=== PATIENT | female | born 1945 | race Caucasian/White ===

== ENCOUNTER → 2017-11-08 09:08 | Outpatient (CLI) | payer MEDICARE, OTHER, SELFPAY ==
[2017-11-08 11:12] LABS: Hep C Virus Ab w/Reflex Quant NEGATIVE s/c (NEGATIVE)
== END ==
PROVIDERS: PCP Family Medicine; Visit Provider Family Medicine
DX: Z77.21 Contact with and (suspected) exposure to potentially hazardous body fluids (principal)
CPT/HCPCS: 36415; 86803

== ENCOUNTER → 2018-01-14 14:04 | Outpatient (CLI) | payer MEDICARE, OTHER, SELFPAY ==
--- NOTE | 2018-01-14 | DI.US.S_ITS ---
PROCEDURE: US THYROID INDICATIONS: NONTOXIC GOITER TECHNIQUE: Real-time scanning was performed of the thyroid gland, with image documentation. COMPARISON: [facility] Ultrasound, US, US THYROID, 02/09/2017, 13:58. [facility], US, THYROID, 03/28/2015, 13:05. [facility], US, THYROID, 11/03/2007, 8:29. FINDINGS: Right: Thyroid lobe measures 4.8 x 2.0 x 2.1 cm. There is a predominantly solid, hypoechoic nodule in the inferior pole. Left: Thyroid lobe measures 2.4 x 1.4 x 1.5 cm, and is homogenous in echotexture. There is a spongiform nodule in the superior pole. Isthmus: 3 mm thick. Nodule number: 1 Location: Inferior pole of the right thyroid lobe Size: 1.6 x 1.4 x 2.3 cm (previously 1.7 x 1.1 x 2.4 cm on 02/09/2017). Composition: Predominantly solid Echogenicity: Isoechoic Shape: wider than tall. Margins: Smooth Echogenic foci: Not present Total points: 3 ACR TI-RADS category: 3 Nodule number: 2 Location: Superior pole of the left thyroid lobe Size: 0.9 x 10.9 x .7 cm (previously 1.1 x 1.0 x 1.8 cm). Composition: The spongiform Echogenicity: Mixed Shape: wider than tall. Margins: Smooth Echogenic foci: Not present Total points: 1 ACR TI-RADS category: 2 IMPRESSION: Stable bilateral thyroid nodules. ACR TI-RADS definitions and recommendations: TI-RADS 1 (benign): 0 points. FNA not needed. TI-RADS 2 (not suspicious): 2 points. FNA not needed. TI-RADS 3 (mildly suspicious): 3 points. * FNA if 2.5 cm or larger, follow up if 1.5 cm or larger (at 1, 3, and 5 years). TI-RADS 4 (moderately suspicious): 4-6 points. * FNA if 1.5 cm or larger, follow up if 1 cm or larger (at 1, 2, 3, and 5 years). TI-RADS 5 (highly suspicious): 7 points or more. * FNA if 1 cm or larger, follow up if 0.5 cm or larger (every year for 5 years). Dictated by: Ambrocio Godfrey M.D. on 01/14/2018 at 16:37 Approved by: Ambrocio Godfrey M.D. on 01/14/2018 at 16:48
== END ==
PROVIDERS: PCP Family Medicine; Visit Provider Internal Medicine Endocrinology, Diabetes & Metabolism
DX: E04.2 Nontoxic multinodular goiter (principal)
CPT/HCPCS: 76536

== ENCOUNTER → 2018-02-16 12:05 | Outpatient (CLI) | payer MEDICARE, OTHER, SELFPAY ==
--- NOTE | 2018-02-16 | DI.MG.S_ITS ---
BILATERAL DIGITAL SCREENING MAMMOGRAM 3D/2D WITH CAD: 02/16/2018 CLINICAL: Routine screening. Comparison is made to exams dated: 02/15/2017 mammogram, 02/14/2016 mammogram, and 02/08/2015 mammogram - [facility]. The tissue of both breasts is heterogeneously dense. This may lower the sensitivity of mammography. Current study was also evaluated with a Computer Aided Detection (CAD) system. No significant masses, calcifications, or other findings are seen in either breast. There has been no significant interval change. IMPRESSION: NEGATIVE There is no mammographic evidence of malignancy. A 1 year screening mammogram is recommended. This exam was interpreted at Station ID: [id number]. NOTE: For mammograms, a report in lay terms will be sent to the patient. Approximately 15% of breast malignancies will not be visualized mammographically. In the management of a palpable breast mass, a negative mammogram must not discourage biopsy of a clinically suspicious lesion. Electronically Signed By: Reilly roca/gildardo:02/16/2018 15:56:13 copy to: Joanne Lorenzo letter sent: Normal Exam ACR BI-RADS Category 1: Negative 3341F
== END ==
PROVIDERS: PCP Family Medicine; Visit Provider Family Medicine
DX: Z12.31 Encounter for screening mammogram for malignant neoplasm of breast (principal)
CPT/HCPCS: 77063; 77067

== ENCOUNTER → 2018-04-18 08:22 | Outpatient (CLI) | payer MEDICARE, OTHER, SELFPAY ==
[2018-04-18 10:39] LABS: Calcium 9.8 mg/dL (8.4-10.2)
[2018-04-18 11:16] LABS: Vitamin D 25 Hydroxy (D3) 42.2 ng/mL (30.0-100.0)
[2018-04-25 17:27] LABS: Parathyroid Hormone Int 37 pg/mL (14-64)
[2018-04-27 19:02] LABS: N-Telopeptide Serum 12.3 nM BCE (6.2-19.0)
== END ==
PROVIDERS: Family Provider Family Medicine; PCP Family Medicine; Visit Provider Internal Medicine Endocrinology, Diabetes & Metabolism
DX: M81.0 Age-related osteoporosis without current pathological fracture (principal)
CPT/HCPCS: 36415; 82306; 82310; 82523; 83970

== ENCOUNTER → 2018-09-01 07:39 | Outpatient (CLI) | payer MEDICARE, SELFPAY ==
[2018-09-01 08:18] LABS: Add Manual Diff / Slide Review NO; Basophils Absolute Auto 0 /uL (0-100); Basophils Percent Auto 0.7 % (0-2); Eosinophils Absolute Auto 100 /uL (0-450); Eosinophils Percent Auto 1.7 % (2-4); Hemoglobin 14.1 g/dL (12.0-16.0); Lymphocytes Absolute Auto 2300 /uL (1100-4500); Lymphocytes Percent Auto 41.7 % (25-40); Mean Corpuscular HGB Conc 34.4 % (30-36); Mean Corpuscular Hemoglobin 31.8 PG (26-34); Mean Corpuscular Volume 92.6 fL (80-100); Monocytes Absolute Auto 500 /uL (0-900); Monocytes Percent Auto 8.2 % (3-14); Neutrophils Absolute Auto 2600 /uL (1500-7000); Neutrophils Percent Auto 47.7 % (50-75); Platelet Count 261 X10^3/uL (150-400); Red Blood Cell Count 4.43 X10^6/uL (4.0-5.2); Red Cell Distribution Width 13.6 % (11.6-14.8); White Blood Cell Count 5.5 X10^3/uL (4.5-11.0)
[2018-09-01 08:33] LABS: Alanine Aminotransferase 27 IU/L (9-52); Albumin 4.2 g/dL (3.5-5.0); Albumin Globulin Ratio 1.4 (1.0-2.8); Alkaline Phosphatase 84 U/L (38-126); Aspartate Aminotransferase 31 IU/L (14-36); BUN Creatinine Ratio 28.6 (6-22); Bilirubin Total 0.7 mg/dL (0.2-1.3); Blood Urea Nitrogen 20 mg/dL (7-17); Calcium 9.8 mg/dL (8.4-10.2); Carbon Dioxide 28 mmol/L (22-32); Chloride 102 mmol/L (98-107); Cholesterol 205 mg/dL (140-199); Estimated Glomerular Filt Rate > 60.0 mL/min (>60); Globulin 2.9 g/dL (1.7-4.1); Glucose 80 mg/dL (80-110); HDL Cholesterol 81 mg/dL (40-60); HEMOLYSIS < 15 (0-50); LDL Cholesterol Calculated 112 mg/dL (<100); Potassium 4.2 mmol/L (3.4-5.1); Sodium 138 mmol/L (137-145); Total Protein 7.1 g/dL (6.3-8.2); Triglycerides 60 mg/dL (35-150)
[2018-09-01 08:59] LABS: Free T3, Triiodothyronine Free 3.04 pg/mL (2.77-5.27); Free T4, Direct Thyroxine 1.15 ng/dL (0.78-2.19)
[2018-09-01 09:12] LABS: Thyroid Stimulating Hormone 0.94 uIU/mL (0.47-4.68)
== END ==
PROVIDERS: PCP Family Medicine; Visit Provider Family Medicine
DX: E03.9 Hypothyroidism, unspecified (principal); I10 Essential (primary) hypertension; Z51.81 Encounter for therapeutic drug level monitoring
CPT/HCPCS: 36415; 80053; 80061; 84439; 84443; 84481; 85025

== ENCOUNTER → 2019-01-19 09:22 | Outpatient (CLI) | payer MEDICARE, SELFPAY ==
[2019-01-19 11:01] LABS: Thyroid Stimulating Hormone 1.18 uIU/mL (0.47-4.68)
== END ==
PROVIDERS: Family Provider Family Medicine; PCP Family Medicine; Visit Provider Internal Medicine Endocrinology, Diabetes & Metabolism
DX: E04.2 Nontoxic multinodular goiter (principal); E04.1 Nontoxic single thyroid nodule
CPT/HCPCS: 36415; 84443

== ENCOUNTER → 2019-02-22 15:54 | Outpatient (CLI) | payer MEDICARE, SELFPAY ==
--- NOTE | 2019-02-22 | DI.MG.S_ITS ---
BILATERAL DIGITAL SCREENING MAMMOGRAM 3D/2D WITH CAD: 02/22/2019 CLINICAL: Routine screening. Comparison is made to exams dated: 02/16/2018 mammogram, 02/15/2017 mammogram, 02/14/2016 mammogram, and 02/08/2015 mammogram - [facility]. There are scattered fibroglandular elements in both breasts. Current study was also evaluated with a Computer Aided Detection (CAD) system. No significant masses, calcifications, or other findings are seen in either breast. There has been no significant interval change. IMPRESSION: NEGATIVE There is no mammographic evidence of malignancy. A 1 year screening mammogram is recommended. This exam was interpreted at Station ID: [id number]. NOTE: For mammograms, a report in lay terms will be sent to the patient. Approximately 15% of breast malignancies will not be visualized mammographically. In the management of a palpable breast mass, a negative mammogram must not discourage biopsy of a clinically suspicious lesion. Electronically Signed By: Lucila lu/gildardo:02/24/2019 11:57:10 copy to: Joanne Lorenzo letter sent: Normal Exam ACR BI-RADS Category 1: Negative 3341F
== END ==
PROVIDERS: PCP Family Medicine; Visit Provider Family Medicine
DX: Z12.31 Encounter for screening mammogram for malignant neoplasm of breast (principal)
CPT/HCPCS: 77063; 77067

== ENCOUNTER → 2019-09-07 07:45 | Outpatient (CLI) | payer MEDICARE, SELFPAY ==
[2019-09-07 09:01] LABS: Add Manual Diff / Slide Review NO; Basophils Absolute Auto 0 /uL (0-100); Eosinophils Absolute Auto 100 /uL (0-450); Eosinophils Percent Auto 1.9 % (2-4); Hematocrit 39.3 % (36-46); Hemoglobin 13.5 g/dL (12.0-16.0); Lymphocytes Absolute Auto 2000 /uL (1100-4500); Lymphocytes Percent Auto 40.1 % (25-40); Mean Corpuscular HGB Conc 34.4 % (30-36); Mean Corpuscular Hemoglobin 32.4 PG (26-34); Mean Corpuscular Volume 94.1 fL (80-100); Monocytes Absolute Auto 400 /uL (0-900); Monocytes Percent Auto 7.8 % (3-14); Neutrophils Absolute Auto 2400 /uL (1500-7000); Neutrophils Percent Auto 49.2 % (50-75); Platelet Count 251 X10^3/uL (150-400); Red Blood Cell Count 4.18 X10^6/uL (4.0-5.2); White Blood Cell Count 4.9 X10^3/uL (4.5-11.0)
[2019-09-07 09:16] LABS: Aspartate Aminotransferase 21 IU/L (14-36); Blood Urea Nitrogen 23 mg/dL (7-17); Calcium 9.7 mg/dL (8.4-10.2); Carbon Dioxide 28 mmol/L (22-32); Chloride 105 mmol/L (98-107); Cholesterol 182 mg/dL (140-199); Estimated Glomerular Filt Rate > 60.0 mL/min (>60); Glucose 87 mg/dL (80-110); HDL Cholesterol 63 mg/dL (40-60); HEMOLYSIS < 15 (0-50); LDL Cholesterol Calculated 103 mg/dL (<100); Potassium 4.3 mmol/L (3.4-5.1); Sodium 139 mmol/L (137-145); Triglycerides 79 mg/dL (35-150)
== END ==
PROVIDERS: PCP Family Medicine; Referring Provider Internal Medicine; Visit Provider Internal Medicine
DX: I10 Essential (primary) hypertension (principal); E78.2 Mixed hyperlipidemia; I48.91 Unspecified atrial fibrillation; E03.9 Hypothyroidism, unspecified
CPT/HCPCS: 36415; 80048; 80061; 84443; 84450; 85025

== ENCOUNTER → 2019-11-10 10:24 | Outpatient (CLI) | payer MEDICARE, SELFPAY ==
--- NOTE | 2019-11-10 | DI.US.S_ITS ---
PROCEDURE: US THYROID INDICATIONS: NONTOXIC MULTINODULAR GOITER TECHNIQUE: Real-time scanning was performed of the thyroid gland, with image documentation. COMPARISON: [facility], US, US THYROID, 01/14/2018, 14:50. FINDINGS: Right: Thyroid lobe measures 4.3 x 1.9 x 1.9 cm, and is homogeneous in echotexture. Left: Thyroid lobe measures 3.4 x 1.5 x 1.4 cm, and is homogenous in echotexture. Isthmus: 4.0 mm thick. Nodule number: 1 Location: Right inferior Size: Unchanged 2.3 x 1.6 x 1.5 cm. Composition: Predominantly solid Echogenicity: Hypoechoic Shape: wider than tall. Margins: Smooth Echogenic foci: None Total points: 4 ACR TI-RADS category: Moderately suspicious Nodule number: 2 Location: Left superior Size: Unchanged at 1.7 x 1.1 x 1.1 Composition: Predominantly solid Echogenicity: Heterogeneous Shape: wider than tall. Margins: Smooth Echogenic foci: None Total points: 3 ACR TI-RADS category: Mildly suspicious IMPRESSION: Stable appearance of bilateral thyroid nodules. Recommend continued followup ultrasound as detailed below. ACR TI-RADS definitions and recommendations: TI-RADS 1 (benign): 0 points. FNA not needed. TI-RADS 2 (not suspicious): 2 points. FNA not needed. TI-RADS 3 (mildly suspicious): 3 points. * FNA if 2.5 cm or larger, follow up if 1.5 cm or larger (at 1, 3, and 5 years). TI-RADS 4 (moderately suspicious): 4-6 points. * FNA if 1.5 cm or larger, follow up if 1 cm or larger (at 1, 2, 3, and 5 years). TI-RADS 5 (highly suspicious): 7 points or more. * FNA if 1 cm or larger, follow up if 0.5 cm or larger (every year for 5 years). Dictated by: Brian MERCHANT Interpreted: Yuki Rosas MD on 11/10/2019 at 13:05 Approved by: Yuki Rosas M.D. on 11/10/2019 at 15:05
[2019-11-10 11:59] LABS: Free T4, Direct Thyroxine 1.14 ng/dL (0.78-2.19)
[2019-11-10 12:13] LABS: Thyroid Stimulating Hormone 0.552 uIU/mL (0.47-4.68)
== END ==
PROVIDERS: PCP Internal Medicine; Referring Provider Internal Medicine Endocrinology, Diabetes & Metabolism; Visit Provider Internal Medicine Endocrinology, Diabetes & Metabolism
DX: E04.2 Nontoxic multinodular goiter (principal); E03.9 Hypothyroidism, unspecified; R49.0 Dysphonia
CPT/HCPCS: 36415; 76536; 84439; 84443

== ENCOUNTER → 2019-11-14 17:55 | Outpatient (CLI) | payer MEDICARE, SELFPAY ==
[2019-11-14 19:58] LABS: COVID19 -Nasal RAPID Negative (Negative)
== END ==
PROVIDERS: PCP Internal Medicine; Visit Provider Physician Assistant
DX: Z01.812 Encounter for preprocedural laboratory examination (principal)
CPT/HCPCS: 87635

== ENCOUNTER 2019-11-15 07:20 | Day surgery (SDC) | payer MEDICARE, SELFPAY ==
[2019-11-15] VITALS (7 sets, daily range): BP systolic 137–151; BP diastolic 66–78; PULSE 56–64; RESP 12–19; TEMP 36.2–36.4; O2SAT 98–100; BMI 25.1
--- NOTE | 2019-11-15 | PATH_ITS ---
[facility] Accession Number: [id number] . 01 Material submitted: . PART A: cecum - CECAL POLYP PART B: colon - ASCENDING COLON POLYPS . 01 Clinical history: . B: ASCENDING COLON POLYPS X2 . 02 Diagnosis: A. Cecum, Polyp, Biopsy: Tubular adenoma. . B. Ascending Colon, Polyps x2, Biopsies: Sessile serrated adenomas. V 11/17/2019 1018 Local . 02 Electronically signed: . Bianka Gates MD, Pathologist NPI- [id number] . 01 Gross description: . Part A: CECAL POLYP: Received in formalin is 1 fragment(s) of kwon, soft tissue measuring 0.9 x 0.5 x 0.1 cm submitted entirely in 1 cassette(s) Part B: ASCENDING COLON POLYPS: Received in formalin are multiple fragment(s) of kwon, soft tissue measuring 1.0 x 1.0 x 0.4 cm in aggregate submitted entirely in 1 cassette(s) /QBJ 11/16/2019 0816 Local . 02 Pathologist provided ICD-10: D12.0, D12.2 . 02 CPT . 006022, 693709 Performed at: 01 [facility] [address], [place], [place] [id number] MD Reilly Cole MD Phone: [phone] Performed at: 02 [facility] [address] [place], [place] [id number] MD Bianka Gates MD Phone: [phone]
[2019-11-15] MEDS: SODIUM CHLORIDE 0.9% 1,000 ML 70 ML IV (07:59)
--- NOTE | 2019-11-15 08:03 | PM.HP.1 ---
History of Present Illness History of Present Illness Date Patient Seen: 11/15/19 Chief complaint: COLONOSCOPY Narrative: 74-year-old female seen by Dr. Quiroz on 10/12/2019 for constipation and fecal incontinence who is here for colonoscopy. She has a history of colon polyps in the past. She is currently taking Eliquis which she has held for this procedure. Patient History Medical History (Updated 03/22/19 @ 08:34 by Joanne Lorenzo MD) Anemia (Resolved 194) Anemia (Resolved 1948) Blood clot in vein (Chronic) Cataracts, bilateral (Resolved) Cataracts, both eyes (Resolved ~2012) Cervical spine disease (Chronic 2013) Chicken pox (Resolved ~1951) Chickenpox (Resolved ~1951) Chlamydia (Resolved Unknown) Chlamydia (Resolved) Chronic back pain (Chronic 2013) Colon polyps (Chronic ~2011) Fecal incontinence (Chronic ~2010) Foot pain (Chronic) Frequent UTI (Chronic) Generalized headaches (Chronic) Hemorrhoids (Chronic ~07/2014) History of blood clots (Resolved Unknown) History of irregular menstrual cycles (Resolved Unknown) Hypertension (Chronic 1995) Hypothyroidism (Chronic 1994) Infertility (Resolved) Irregular periods/menstrual cycles (Resolved) Lumbar spine pain (Chronic) Measles (Resolved ~1951) Measles (Resolved ~1951) Mumps (Resolved Unknown) Mumps (Resolved) Osteoarthritis (Chronic) Osteopenia (Chronic) Peripheral neuropathy (Chronic 2009) Shoulder pain (Chronic) Sleep apnea (Chronic 1999) Spinal stenosis (Chronic) Thyroid nodule (Chronic 1994) Urinary incontinence (Chronic) Surgical History Anesthesia (Resolved) History of left cataract surgery (Resolved 2012) History of nasal septoplasty (Resolved 1983) History of right cataract surgery (Resolved 2013) History of tonsillectomy (Resolved 1951) Status post appendectomy (Resolved 2008) Status post dilation and curettage (Resolved 1978) Family & Social History Family History (Updated 01/19/18 @ 10:15 by Mohini Sky) Mother High cholesterol Congestive heart failure Heart disease Mental health problem Father Lung cancer Grandmother No problems noted. Sister Anxiety Sister Anxiety Grandmother Heart disease Grandfather Heart disease Social History: household members spouse Tobacco & Substance use: Smoking Status Never smoker alcohol intake frequency holiday/special occasion Substance Use Type does not use Meds Home Medications and Allergies Home Medications Medication Instructions Recorded Confirmed Type cyanocobalamin (vitamin B-12) 500 mcg PO QDAY #0 02/19/16 11/15/19 History [Vitamin B-12] Eliquis 2.5 mg BID #0 09/07/16 11/15/19 History metoprolol succinate [Toprol XL] 12.5 mg PO QDAY #45 tab 03/08/17 11/15/19 Rx letanoprost EYE-BOTH 10/26/17 03/22/19 History calcium carbonate 500 mg calcium 500 mg PO BID tab 01/19/18 11/15/19 History (1,250 mg) tablet omega-3 fatty acids 1,000 mg 1,000 mg PO DAILY 01/19/18 11/15/19 History capsule levothyroxine 137 mcg tablet 137 mcg PO QDAY #90 tab 10/10/18 03/22/19 Rx liothyronine 5 mcg tablet 5 mcg PO QAM #90 tab 10/10/18 11/15/19 Rx CMP Estriol Vaginal Pearls See Rx Instructions VAG .COMPLEX 03/10/19 03/22/19 Rx #30 day amlodipine 5 mg tablet 5 mg PO QDAY #90 tab 09/01/19 11/15/19 Rx nitrofurantoin See Rx Instructions .ROUTE 10/09/19 Rx monohydrate/macrocrystals 100 mg .COMPLEX #30 cap capsule Allergies Allergy/AdvReac Type Severity Reaction Status Date / Time duloxetine Allergy Mild Verified 11/15/19 07:37 codeine Allergy Unknown Verified 11/15/19 07:34 Exam Vital Signs (past 8 hours): - 11/15/19 07:52 Temperature 97.5 F L Pulse Rate 56 L Respiratory Rate 16 Blood Pressure 151/78 H Pulse Oximetry 98 Oxygen Delivery Method Room Air Narrative Exam Narrative: General: Patient is well developed, not in apparent distress Cardiovascular: Regular rate and rhythm, no murmurs, rubs, or gallops; no evidence of edema; no palpable abdominal aortic aneurysm Gastrointestinal: Normoactive bowel sounds, soft, nontender, nondistended, no rebound tenderness, no hepatosplenomegaly, no evidence of hernia Assessment & Plan Assessment & Plan narrative: 74-year-old female currently on Eliquis with here for surveillance colonoscopy. She has incidental constipation and fecal incontinence Regarding the procedure(s), the risks and potential complications, benefits, and alternatives (including not doing the procedure) were discussed with the patient. The risks include but are not limited to bleeding, splenic injury, infection, perforation which may require surgical intervention, missed lesions, and adverse reactions to sedative medicines. After a question and answer period, the patient agreed to proceed with the procedure(s) and gives informed consent.
--- NOTE | 2019-11-15 08:16 | PM.OP.ENDO ---
Operative Date/Time/Diagnoses Date of procedure: 11/15/19 Procedure Notes Procedure in detail: Surgeon: Luis Bruno MD Procedure: Colonoscopy with polypectomy Preoperative diagnosis: Colon polyp surveillance Postoperative diagnosis: Colon polyps status post polypectomy; 1 via piecemeal polypectomy; grade 1 internal hemorrhoids Medications: Conscious sedation using 4 mg IV of Midazolam and 100 mcg IV of Fentanyl Preanesthesia Assessment An H and P was performed/updated and the Px?s ASA class is 2. The procedure was discussed in detail with the patient. The potential risks and complications including infection, bleeding, missed lesions, perforation, need for surgery in case of perforation, prolonged hospital stay, and were explained. A brief question and answer period was allotted and once all questions were answered, informed consent was obtained. The patient was brought back to the procedure room and placed on standard monitoring. The patient?s vital signs were monitored continuously throughout the entire procedure. Prior to starting, a timeout was performed to confirm the patient?s identity, allergies, medications, and procedure. Procedure in detail The patient was placed in left lateral decubitus position and once adequate sedation was obtained a REJI was performed. The digital rectal examination did not reveal any palpable lesions. The tip of the colonoscope was placed in the anal canal and advanced without difficulty all the way to the cecum which was identified by the appendiceal orifice and the ileocecal valve. Careful examination of all rudolph of the colon was performed with irrigation of any residual stool. A 5 mm sessile polyp was found in the cecum. This was removed by means of cold snare. Resection and retrieval were complete with minimal bleeding A 5 mm sessile polyp was found in the ascending colon. This was removed by means of cold snare. Resection and retrieval were complete with minimal bleeding A 20 mm sessile polyp was found in the ascending colon just distal to the cecum. Saline lift was performed to define borders of the polyp. Dissection of will follow up was done in a piecemeal fashion using hot and cold snare. Resection appeared complete with minimal bleeding. Retroflexion was performed in the rectum which revealed grade 1 internal hemorrhoids The patient tolerated the procedure well and will be brought back to the recovery area to be discharged once criteria are met. The prep was judged to be good and adequate to identify polyps less than 5 mm. The withdrawal time was 27 minutes. The total physician intraservice time was 35 minutes. Complications There were no complications and estimated blood loss was minimal. Recommendations: Resume previous diet Resume Eliquis tomorrow due to the large polypectomy Continue outPx medications Follow up pathology results Repeat colonoscopy in 3 months to re-evaluate polypectomy site for any residual polyp given piecemeal removal Call our office ([facility]) to schedule follow-up with Dr Quiroz An emergency contact number was given to the patient for any complications related to the procedure
[2019-11-15] MEDS: MIDAZOLAM 5 MG/5 ML VIAL IV (08:22)
[2019-11-15] MEDS: fentaNYL 250 MCG/5 ML INJ IV (08:22)
== END 2019-11-15 09:42 | disposition home or self-care (01) ==
PROVIDERS: PCP Internal Medicine; Referring Provider Internal Medicine Gastroenterology; Visit Provider Internal Medicine Gastroenterology
PROC: 0DJD8ZZ Inspection of Lower Intestinal Tract, Via Natural or Artificial Opening Endoscopic (ICD-10-PCS; CPT 45378; principal; 2019-11-15 08:30)
DX: Z12.11 Encounter for screening for malignant neoplasm of colon (principal); Z86.010 Personal history of colon polyps; K64.0 First degree hemorrhoids; D12.2 Benign neoplasm of ascending colon; D12.0 Benign neoplasm of cecum; Z79.01 Long term (current) use of anticoagulants
CPT/HCPCS: 45385; J2250; J3010

== ENCOUNTER → 2020-02-19 13:16 | Outpatient (CLI) | payer MEDICARE, SELFPAY ==
[2020-02-19 15:01] LABS: Thyroid Stimulating Hormone 1.27 uIU/mL (0.47-4.68)
== END ==
PROVIDERS: PCP Internal Medicine; Referring Provider Internal Medicine Endocrinology, Diabetes & Metabolism; Visit Provider Internal Medicine Endocrinology, Diabetes & Metabolism
DX: E03.9 Hypothyroidism, unspecified (principal); E04.2 Nontoxic multinodular goiter
CPT/HCPCS: 36415; 84443

== ENCOUNTER → 2020-02-24 10:12 | Outpatient (CLI) | payer MEDICARE, SELFPAY ==
--- NOTE | 2020-02-24 | DI.MG.S_ITS ---
BILATERAL DIGITAL SCREENING MAMMOGRAM 3D/2D WITH CAD: 02/24/2020 CLINICAL: Routine screening. Comparison is made to exams dated: 02/22/2019 mammogram, 02/16/2018 mammogram, and 02/15/2017 mammogram - [facility]. There are scattered fibroglandular elements in both breasts. Current study was also evaluated with a Computer Aided Detection (CAD) system. No significant masses, calcifications, or other findings are seen in either breast. There has been no significant interval change. IMPRESSION: NEGATIVE There is no mammographic evidence of malignancy. A 1 year screening mammogram is recommended. This exam was interpreted at Station ID: [id number]. NOTE: For mammograms, a report in lay terms will be sent to the patient. Approximately 15% of breast malignancies will not be visualized mammographically. In the management of a palpable breast mass, a negative mammogram must not discourage biopsy of a clinically suspicious lesion. Electronically Signed By: Jamin Pickering acr/penrad:02/25/2020 15:31:46 copy to: Joanne Lorenzo letter sent: Normal Exam ACR BI-RADS Category 1: Negative 3341F
== END ==
PROVIDERS: PCP Internal Medicine; Referring Provider Internal Medicine; Visit Provider Internal Medicine
DX: Z12.31 Encounter for screening mammogram for malignant neoplasm of breast (principal)
CPT/HCPCS: 77063; 77067

== ENCOUNTER → 2020-04-22 10:09 | Outpatient (CLI) | payer MEDICARE, SELFPAY ==
[2020-04-22 11:40] LABS: COVID19 -Nasal RAPID Negative (Negative)
== END ==
PROVIDERS: PCP Internal Medicine; Visit Provider Physician Assistant
DX: Z01.812 Encounter for preprocedural laboratory examination (principal); Z20.822 Contact with and (suspected) exposure to COVID-19
CPT/HCPCS: 87635; C9803

== ENCOUNTER 2020-04-24 07:51 | Day surgery (SDC) | payer MEDICARE, SELFPAY ==
--- NOTE | 2020-04-24 | PATH_ITS ---
[facility] Accession Number: [id number] . 01 Material submitted: . colon - PRIOR POLYPECTOMY POLYP . 01 Clinical history: . DX COLONOSCOPY . 02 Diagnosis: Polyp, Prior Polypectomy Site, Biopsy: Sessile serrated adenoma in one of four fragments. MRV 04/26/2020 1258 Local . 02 Electronically signed: . Bianka Gates MD, Pathologist NPI- [id number] . 01 Gross description: . PRIOR POLYPECTOMY POLYP: Received in formalin are 3 fragment(s) of kwon, soft tissue measuring 0.2 x 0.2 x 0.2 cm to 0.5 x 0.3 x 0.2 cm submitted entirely in 1 cassette(s) /JOVANNY 04/25/2020 1848 Local . 02 Pathologist provided ICD-10: D12.2 . 02 CPT . 150168 Performed at: 01 [facility] [address] [facility], [place], [place] [id number] MD Reilly Cole MD Phone: [phone] Performed at: 02 [facility] [address] [place], [place] [id number] MD Bianka Gates MD Phone: [phone]
--- NOTE | 2020-04-24 08:06 | PM.HP.1 ---
History of Present Illness History of Present Illness Date Patient Seen: 04/24/20 Chief complaint: DX COLONOSCOPY Narrative: 75-year-old female status post colonoscopy with piecemeal polyp removal in October 2019 who is here for surveillance of polypectomy site Patient History Medical History (Updated 03/06/20 @ 10:51 by Joanne Lorenzo MD) Anemia (1949) Anemia (1948) Blood clot in vein Cataracts, bilateral Cataracts, both eyes (~2012) Cervical spine disease (2013) Chicken pox (~1951) Chickenpox (~1951) Chlamydia (Unknown) Chlamydia Chronic back pain (2013) Colon polyps (~2011) Fecal incontinence (~2010) Foot pain Frequent UTI Generalized headaches Hemorrhoids (~07/2014) History of blood clots (Unknown) History of irregular menstrual cycles (Unknown) Hypertension (1995) Hypothyroidism (1994) Infertility Irregular periods/menstrual cycles Lumbar spine pain Measles (~1951) Measles (~1951) Mumps (Unknown) Mumps Osteoarthritis Osteopenia Peripheral neuropathy (2009) Shoulder pain Sleep apnea (1999) Spinal stenosis Thyroid nodule (1994) Urinary incontinence Surgical History Anesthesia History of left cataract surgery (2012) History of nasal septoplasty (1983) History of right cataract surgery (2013) History of tonsillectomy (1951) Status post appendectomy (2008) Status post dilation and curettage (1978) Family & Social History Family History (Updated 01/19/18 @ 10:15 by Mohini Sky) Mother High cholesterol Congestive heart failure Heart disease Mental health problem Father Lung cancer Grandmother No problems noted. Sister Anxiety Sister Anxiety Grandmother Heart disease Grandfather Heart disease Social History: household members spouse Tobacco & Substance use: Smoking Status Never smoker alcohol intake frequency holiday/special occasion Substance Use Type does not use Meds Home Medications and Allergies Home Medications Medication Instructions Recorded Confirmed Type cyanocobalamin (vitamin B-12) 500 mcg PO QDAY #0 02/19/16 04/24/20 History [Vitamin B-12] Eliquis 2.5 mg BID #0 09/07/16 04/24/20 History metoprolol succinate [Toprol XL] 12.5 mg PO QDAY #45 tab 03/08/17 04/24/20 Rx calcium carbonate 500 mg calcium 500 mg PO BID tab 01/19/18 04/24/20 History (1,250 mg) tablet omega-3 fatty acids 1,000 mg 1,000 mg PO DAILY 01/19/18 04/24/20 History capsule levothyroxine 137 mcg tablet 137 mcg PO QDAY #90 tab 10/10/18 04/24/20 Rx liothyronine 5 mcg tablet 5 mcg PO QAM #90 tab 10/10/18 04/24/20 Rx CMP Estriol Vaginal Pearls See Rx Instructions VAG .COMPLEX 03/10/19 04/24/20 Rx #30 day amlodipine 5 mg tablet 5 mg PO QDAY #90 tab 09/01/19 04/24/20 Rx nitrofurantoin See Rx Instructions .ROUTE 10/09/19 04/24/20 Rx monohydrate/macrocrystals 100 mg .COMPLEX #30 cap capsule venlafaxine See Rx Instructions .ROUTE .COMPLEX 04/24/20 04/24/20 History Allergies Allergy/AdvReac Type Severity Reaction Status Date / Time duloxetine Allergy Mild Verified 04/24/20 08:08 codeine Allergy Unknown Verified 04/24/20 08:08 Exam Narrative Exam Narrative: General: Patient is well developed, not in apparent distress Cardiovascular: Regular rate and rhythm, no murmurs, rubs, or gallops; no evidence of edema; no palpable abdominal aortic aneurysm Gastrointestinal: Normoactive bowel sounds, soft, nontender, nondistended, no rebound tenderness, no hepatosplenomegaly, no evidence of hernia Assessment & Plan Assessment & Plan narrative: 75-year-old female here for surveillance of piecemeal polypectomy site performed 11/15/2019 Regarding the procedure(s), the risks and potential complications, benefits, and alternatives (including not doing the procedure) were discussed with the patient. The risks include but are not limited to bleeding, splenic injury, infection, perforation which may require surgical intervention, missed lesions, and adverse reactions to sedative medicines. After a question and answer period, the patient agreed to proceed with the procedure(s) and gives informed consent.
[2020-04-24 08:13] VITALS: BP 157/84; PULSE 81; RESP 16; TEMP 36.4; O2SAT 98; BMI 27.1
[2020-04-24] MEDS: SODIUM CHLORIDE 0.9% 1,000 ML 70 ML IV (08:22)
--- NOTE | 2020-04-24 08:56 | PM.OP.ENDO ---
Operative Date/Time/Diagnoses Date of procedure: 04/24/20 Procedure Notes Procedure in detail: Surgeon: Luis Bruno MD Procedure: Colonoscopy with polypectomy Preoperative diagnosis: Surveillance of piecemeal polypectomy site Postoperative diagnosis: Residual polyp at prior polypectomy site status post removal; grade 1 internal hemorrhoids Medications: Conscious sedation using 4 mg IV of Midazolam and 150 mcg IV of Fentanyl Preanesthesia Assessment An H and P was performed/updated and the Px?s ASA class is 2. The procedure was discussed in detail with the patient. The potential risks and complications including infection, bleeding, missed lesions, perforation, need for surgery in case of perforation, prolonged hospital stay, and were explained. A brief question and answer period was allotted and once all questions were answered, informed consent was obtained. The patient was brought back to the procedure room and placed on standard monitoring. The patient?s vital signs were monitored continuously throughout the entire procedure. Prior to starting, a timeout was performed to confirm the patient?s identity, allergies, medications, and procedure. Procedure in detail The patient was placed in left lateral decubitus position and once adequate sedation was obtained a REJI was performed. The digital rectal examination did not reveal any palpable lesions. The tip of the colonoscope was placed in the anal canal and advanced without difficulty all the way to the cecum which was identified by the appendiceal orifice and the ileocecal valve. Careful examination of all rudolph of the colon was performed with irrigation of any residual stool. The prior polypectomy site in the proximal ascending colon was identified and there was note of residual polyp. This residual polyp was removed by means of cold snare. Resection and retrieval was complete with minimal bleeding. Examination of the rest of the colon showed no further polyps Retroflexion was performed in the rectum which showed grade 1 internal hemorrhoids The patient tolerated the procedure well and will be brought back to the recovery area to be discharged once criteria are met. The prep was judged to be good and adequate to identify polyps less than 5 mm. The withdrawal time was 10 minutes. The total physician intraservice time was 23 minutes. Complications There were no complications and estimated blood loss was minimal. Recommendations: Resume previous diet Continue outPx medications Follow up pathology results Repeat colonoscopy in 3 years for surveillance An emergency contact number was given to the patient for any complications related to the procedure
[2020-04-24] MEDS: MIDAZOLAM 5 MG/5 ML VIAL IV (09:05)
[2020-04-24] MEDS: fentaNYL 250 MCG/5 ML INJ IV (09:06)
[2020-04-24 09:31] VITALS: BP 151/76; PULSE 75; RESP 16; TEMP 36.7; O2SAT 98
[2020-04-24 09:36] VITALS: BP 151/79; PULSE 71; RESP 12; O2SAT 99
[2020-04-24 09:41] VITALS: BP 142/60; PULSE 76; RESP 18; O2SAT 99
[2020-04-24 09:46] VITALS: BP 160/82; PULSE 69; RESP 12; TEMP 36.7; O2SAT 99
[2020-04-24 10:06] VITALS: BP 157/84; PULSE 78; RESP 16; TEMP 36.8; O2SAT 99
== END 2020-04-24 10:05 | disposition home or self-care (01) ==
PROVIDERS: PCP Internal Medicine; Referring Provider Internal Medicine; Visit Provider Internal Medicine Gastroenterology
PROC: 0DJD8ZZ Inspection of Lower Intestinal Tract, Via Natural or Artificial Opening Endoscopic (ICD-10-PCS; CPT 45378; principal; 2020-04-24 09:00)
DX: Z86.010 Personal history of colon polyps (principal); K64.0 First degree hemorrhoids; D12.2 Benign neoplasm of ascending colon
CPT/HCPCS: 45385; J2250; J3010

== ENCOUNTER → 2020-05-14 13:00 | Outpatient (CLI) | payer MEDICARE, SELFPAY ==
[2020-05-14] MEDS: COVID-19 VACC #1, MRNA(MOD) 100 MCG/0.5 ML VIAL IM (13:05)
== END ==
PROVIDERS: PCP Internal Medicine; Visit Provider Internal Medicine
DX: Z23 Encounter for immunization (principal)
CPT/HCPCS: 0011A; 91301

== ENCOUNTER → 2020-06-11 13:11 | Outpatient (CLI) | payer MEDICARE, SELFPAY ==
[2020-06-11] MEDS: COVID-19 VACC #2, MRNA(MOD) 100 MCG/0.5 ML VIAL IM (13:23)
== END ==
PROVIDERS: PCP Internal Medicine; Visit Provider Internal Medicine
DX: Z23 Encounter for immunization (principal)
CPT/HCPCS: 0012A; 91301

== ENCOUNTER → 2020-07-17 13:56 | Outpatient (CLI) | payer MEDICARE, SELFPAY | PROVIDERS: PCP Registered Nurse Diabetes Educator; Referring Provider Registered Nurse Diabetes Educator; Visit Provider Registered Nurse Diabetes Educator | DX: M85.852 Other specified disorders of bone density and structure, left thigh (principal); Z78.0 Asymptomatic menopausal state; E07.9 Disorder of thyroid, unspecified; Z82.62 Family history of osteoporosis | CPT/HCPCS: 77080 ==

== ENCOUNTER → 2020-07-18 07:43 | Outpatient (CLI) | payer MEDICARE, SELFPAY ==
[2020-07-18 08:03] LABS: Hematocrit 40.8 % (36-46); Hemoglobin 13.6 g/dL (12.0-16.0); Mean Corpuscular HGB Conc 33.3 % (30-36); Mean Corpuscular Hemoglobin 31.1 PG (26-34); Mean Corpuscular Volume 93.4 fL (80-100); Platelet Count 256 X10^3/uL (150-400); Red Blood Cell Count 4.36 X10^6/uL (4.0-5.2); Red Cell Distribution Width 13.2 % (11.6-14.8); White Blood Cell Count 5.6 X10^3/uL (4.5-11.0)
[2020-07-18 08:40] LABS: Alanine Aminotransferase 18 IU/L (<35); Albumin 4.1 g/dL (3.5-5.0); Albumin Globulin Ratio 1.8 (1.0-2.8); Alkaline Phosphatase 94 U/L (38-126); Aspartate Aminotransferase 21 IU/L (14-36); BUN Creatinine Ratio 19.8 (6-22); Bilirubin Total 0.5 mg/dL (0.2-1.3); Blood Urea Nitrogen 16 mg/dL (7-17); Calcium 9.8 mg/dL (8.4-10.2); Carbon Dioxide 32 mmol/L (22-32); Chloride 102 mmol/L (98-107); Cholesterol 211 mg/dL (140-199); Estimated Glomerular Filt Rate > 60.0 mL/min (>60); Globulin 2.3 g/dL (1.7-4.1); Glucose 88 mg/dL (80-110); HDL Cholesterol 87 mg/dL (40-60); HEMOLYSIS < 15 (0-50); LDL Cholesterol Calculated 103 mg/dL (<100); Potassium 4.1 mmol/L (3.4-5.1); Sodium 139 mmol/L (137-145); Total Protein 6.4 g/dL (6.3-8.2); Triglycerides 105 mg/dL (35-150)
[2020-07-18 09:09] LABS: TSH w/ Reflex to FT4 1.69 uIU/mL (0.47-4.68)
== END ==
PROVIDERS: PCP Registered Nurse Diabetes Educator; Referring Provider Registered Nurse Diabetes Educator; Visit Provider Registered Nurse Diabetes Educator
DX: E03.9 Hypothyroidism, unspecified (principal); E78.5 Hyperlipidemia, unspecified; I10 Essential (primary) hypertension; M85.80 Other specified disorders of bone density and structure, unspecified site
CPT/HCPCS: 36415; 80053; 80061; 84443; 85027

== ENCOUNTER → 2021-01-13 14:26 | Outpatient (CLI) | payer MEDICARE, SELFPAY ==
[2021-01-13 17:40] LABS: COVID19 -Nasal RAPID Negative (Negative)
== END ==
PROVIDERS: PCP Registered Nurse Diabetes Educator; Visit Provider Nurse Practitioner Family
DX: Z20.822 Contact with and (suspected) exposure to COVID-19 (principal); Z01.812 Encounter for preprocedural laboratory examination
CPT/HCPCS: 87635; C9803

== ENCOUNTER 2021-01-15 07:54 | Day surgery (SDC) | payer MEDICARE, SELFPAY ==
[2021-01-15] VITALS (7 sets, daily range): BP systolic 114–156; BP diastolic 57–76; PULSE 60–68; RESP 12–17; TEMP 36.2–36.7; O2SAT 97–100; BMI 27.4
--- NOTE | 2021-01-15 | PATH_ITS ---
[facility] Accession Number: [id number] . 01 Material submitted: . esophagus, E-G Junction - GE JUNCTION . 01 Clinical history: . A: R/O FUNES'S . 02 Diagnosis: GE Junction: Squamocolumnar junctional mucosa with specialized intestinal metaplasia, consistent with Funes's esophagus. Negative for dysplasia and malignancy. MRV 01/17/2021 1403 Local . 02 Comment: As part of routine quality associate, this case was also reviewed by Dr. Gates, who agrees with the interpretation. . 02 Electronically signed: . Marcy Coronado MD, Pathologist NPI- [id number] . 01 Gross description: . GE JUNCTION: Received in formalin are 2 fragment(s) of kwon, soft tissue measuring 0.4 x 0.3 x 0.2 cm to 0.3 x 0.2 x 0.1 cm submitted entirely in 1 cassette(s) /QBJ 01/16/2021 0537 Local . 02 Pathologist provided ICD-10: K21.9, K22.70 . 02 CPT . 198315 Performed at: 01 [facility] Cyt[facility] [address], [place], [place] [id number] MD Reilly Cole MD Phone: [phone] Performed at: 02 [facility] [address] [place], [place] [id number] MD Bianka Gates MD Phone: [phone]
--- NOTE | 2021-01-15 08:51 | PM.HP.1 ---
History of Present Illness History of Present Illness Date Patient Seen: 01/15/21 Chief complaint: EGD W/POSS BX Patient History Medical History Anemia (1949) Anemia (1948) Blood clot in vein Cataracts, bilateral Cataracts, both eyes (~2012) Cervical spine disease (2013) Chicken pox (~1951) Chickenpox (~1951) Chlamydia (Unknown) Chlamydia Chronic back pain (2013) Colon polyps (~2011) Fecal incontinence (~2010) Foot pain Frequent UTI Generalized headaches Hemorrhoids (~07/2014) History of blood clots (Unknown) History of irregular menstrual cycles (Unknown) Hypertension (1995) Hypothyroidism (1994) Infertility Insomnia Irregular periods/menstrual cycles Lumbar spine pain Measles (~1951) Measles (~1951) Mumps (Unknown) Mumps Neuropathy of both feet Osteoarthritis Osteopenia Osteopenia Peripheral neuropathy (2009) Shoulder pain Sleep apnea (1999) Spinal stenosis Thyroid nodule (1994) Urinary incontinence Surgical History Anesthesia History of left cataract surgery (2012) History of nasal septoplasty (1983) History of right cataract surgery (2013) History of tonsillectomy (1951) Status post appendectomy (2008) Status post dilation and curettage (1978) Family & Social History Family History Mother High cholesterol Congestive heart failure Heart disease Mental health problem Father Lung cancer Grandmother No problems noted. Sister Anxiety Sister Anxiety Grandmother Heart disease Grandfather Heart disease Social History: household members spouse Tobacco & Substance use: Smoking Status Never smoker alcohol intake frequency a few times a week Substance Use Type does not use Meds Home Medications and Allergies Home Medications Medication Instructions Recorded Confirmed Type cyanocobalamin (vitamin B-12) 500 500 mcg PO QDAY #0 02/19/16 01/15/21 History mcg tablet (Vitamin B-12) apixaban 2.5 mg tablet (Eliquis) 2.5 mg BID #0 09/07/16 01/15/21 History metoprolol succinate 25 mg 12.5 mg PO QDAY #45 tab 03/08/17 11/13/20 Rx tablet,extended release 24 hr (Toprol XL) calcium carbonate 500 mg calcium 500 mg PO BID tab 01/19/18 01/15/21 History (1,250 mg) tablet (Calcium 500) omega-3 fatty acids 1,000 mg 1,000 mg PO DAILY 01/19/18 11/13/20 History capsule (Fish Oil Concentrate) levothyroxine 137 mcg tablet 137 mcg PO QDAY #90 tab 10/10/18 01/15/21 Rx liothyronine 5 mcg tablet (Cytomel) 5 mcg PO QAM #90 tab 10/10/18 01/15/21 Rx nitrofurantoin See Rx Instructions .ROUTE 10/09/19 11/13/20 Rx monohydrate/macrocrystals 100 mg .COMPLEX #30 cap capsule triamcinolone acetonide 0.1 % 1 applic TOPICAL BID #15 g 06/13/20 11/13/20 Rx topical cream amlodipine 5 mg tablet (Norvasc) 5 mg PO QDAY #90 tab 08/06/20 01/15/21 Rx atorvastatin 20 mg tablet 20 mg PO BEDTIME #90 tab 08/06/20 01/15/21 Rx venlafaxine 75 mg tablet 75 mg .ROUTE DAILY #90 tab 08/08/20 11/13/20 Rx metoprolol succinate 25 mg mg PO 01/15/21 History tablet,extended release 24 hr Allergies Allergy/AdvReac Type Severity Reaction Status Date / Time duloxetine Allergy Mild Verified 11/13/20 16:13 codeine Allergy Unknown Verified 11/13/20 16:13 Exam Vital Signs (past 8 hours): - 01/15/21 08:14 Temperature 98 F Pulse Rate 62 Respiratory Rate 12 Blood Pressure 156/76 H Pulse Oximetry 100 Oxygen Delivery Method Room Air Narrative Exam Narrative: Oropharynx free of lesions Chest clear to auscultation percussion Cardiac exam reveals no S3 or murmur Assessment & Plan Assessment & Plan narrative: GERD. Rule out esophagitis. Risks, benefits, alternatives have been explained for EGD. Time Spent With Patient Critical Care time: I spent a total of [] minutes of critical care time on this patient's care today; this time is exclusive of procedural time.
--- NOTE | 2021-01-15 08:53 | P.OP.EGD_ITS ---
Operative Date/Time/Diagnoses Date of procedure: 01/15/21 Pre-op diagnosis: See indication and findings Procedure & Clinicians Study performed: EGD Indications: GERD rule out esophagitis, osteoporosis, need to discontinue PPIs Surgeon: Darleen Quiroz Procedure Notes Procedure in detail: After informed consent was obtained the patient was placed in left lateral decubitus position. The video upper scope was placed into the oropharynx and with the patient's help swelled into the esophagus. The esophagus stomach and duodenum were carefully examined. On withdrawal, retroflexed view the GE junction was performed. The scope was removed. The patient tolerated procedure well. Blood loss none Complications none Sedation mac Findings 1. Esophagitis from 33-36 cm. This included focal erosions and some focal scarring. On 1 aspect there was a tongue of different colored mucosa suspicious for Montanez's approximately 2 cm long and 1 cm wide. Biopsies were taken here to rule out Montanez's. 2. Hiatal hernia 4 cm from 36-40 cm. 3. Otherwise normal stomach particularly in the antrum in the pre-pyloric regio ns 4. Normal duodenal bulb and sweep Ms. 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 Yet, she has osteoporosis and should try to get off at least the proton pump inhibitors. Let us await her biopsy results and decide whether or not we could use H2 blockers to help control her symptoms and heal her erosions as a compromise. Further discussion when biopsies return.
== END 2021-01-15 10:20 | disposition home or self-care (01) ==
PROVIDERS: PCP Registered Nurse Diabetes Educator; Referring Provider Internal Medicine Gastroenterology; Visit Provider Internal Medicine Gastroenterology
PROC: 0DJ08ZZ Inspection of Upper Intestinal Tract, Via Natural or Artificial Opening Endoscopic (ICD-10-PCS; CPT 43235; principal; 2021-01-15 09:00)
DX: K21.00 Gastro-esophageal reflux disease with esophagitis, without bleeding (principal); Z79.01 Long term (current) use of anticoagulants; E03.9 Hypothyroidism, unspecified; K44.9 Diaphragmatic hernia without obstruction or gangrene
CPT/HCPCS: 43239; J2704

== ENCOUNTER → 2021-02-24 16:02 | Outpatient (CLI) | payer MEDICARE, SELFPAY ==
--- NOTE | 2021-02-24 16:03 | DI.MG.S_ITS ---
BILATERAL DIGITAL SCREENING MAMMOGRAM 3D/2D WITH CAD: 02/24/2021 CLINICAL: Routine screening. Comparison is made to exams dated: 02/24/2020 mammogram, 02/22/2019 mammogram, and 02/16/2018 mammogram - [facility]. There are scattered fibroglandular elements in both breasts. Current study was also evaluated with a Computer Aided Detection (CAD) system. There are benign calcifications in the left breast. No significant masses, calcifications, or other findings are seen in either breast. There has been no significant interval change. IMPRESSION: BENIGN There is no mammographic evidence of malignancy. A 1 year screening mammogram is recommended. This exam was interpreted at Station ID: [id number]. NOTE: For mammograms, a report in lay terms will be sent to the patient. Approximately 15% of breast malignancies will not be visualized mammographically. In the management of a palpable breast mass, a negative mammogram must not discourage biopsy of a clinically suspicious lesion. Electronically Signed By: Reilly roca/gildardo:02/24/2021 16:30:08 copy to: Joanne Lorenzo letter sent: Normal Exam ACR BI-RADS Category 2: Benign Finding(s) 3342F
== END ==
PROVIDERS: PCP Registered Nurse Diabetes Educator; Referring Provider Registered Nurse Diabetes Educator; Visit Provider Registered Nurse Diabetes Educator
DX: Z12.31 Encounter for screening mammogram for malignant neoplasm of breast (principal)
CPT/HCPCS: 77063; 77067

== ENCOUNTER → 2022-01-19 12:07 | Outpatient (CLI) | payer MEDICARE, SELFPAY ==
--- NOTE | 2022-01-19 | DI.ECHO.S_ITS ---
[facility]---------+ [facility] +---------+ : : [address] [place] : : : : [id number] : : : : Phone: [phone]+ Echocardiogram Report + + :Name: FARIDA ADKINS Study Date: 01/19/2022 Height: 67.5 in: :[facility] ReadingLocation: Weight: 183 lb : : Gender: Female BSA: 2.0 m2 : :: 1945 Age: 76 yrs BP: 147/87 mmHg: :Reason For Study: PROXYSMAL ATRIAL FIBRILLATION : :Ordering Physician: JE MEJIAPerformed By: Luz Rivas : :Referring: JE MEJIA : + + Interpretation Summary The patient was in sinus bradycardia with heart rates between 57-61 bpm during the exam. Hypertensive during exam The left ventricle is normal in size and wall thickness. The ejection fraction is estimated to be 60-65%. Diastolic parameters suggest a pseudonormalization pattern, consistent with probable elevated filling pressures. The left atrium is moderately dilated. There is mild aortic regurgitation. Compared to 02/21/2016, no evidence of MR or TR, but aortic regurgitation is present. Procedure: A two-dimensional transthoracic echocardiogram with color flow and Doppler was performed. The study quality was technically adequate. Comparison is made with the echocardiogram of 02/21/2016. The patient was in sinus bradycardia with heart rates between 57-61 bpm during the exam. Hypertensive during exam. Left Ventricle: The left ventricle is normal in size and wall thickness. The ejection fraction is estimated to be 60-65%. Diastolic parameters suggest a pseudonormalization pattern, consistent with probable elevated filling pressures. Right Ventricle: The right ventricle is normal in size and function. Atria: The left atrium is moderately dilated. Right atrial size is normal. There is no Doppler evidence for an interatrial shunt. Mitral Valve: The mitral valve is normal in structure and function. There is trace mitral regurgitation. Aortic Valve: The aortic valve is trileaflet. The aortic valve opens well. There is no aortic valve stenosis. There is mild aortic regurgitation. Tricuspid Valve: The tricuspid valve is normal in structure and function. There is trace tricuspid regurgitation. Pulmonic Valve: The pulmonic valve is not well visualized. There is no pulmonic valvular regurgitation. Great Vessels: The aortic root is normal size. The dimensions of the ascending aorta are normal. The IVC is of normal diameter and collapses greater than 50% with a sniff. This suggests a low right atrial pressure of 3 mm Hg. Pericardium/ Pleura There is no pericardial effusion. There is no pleural effusion. MMode/2D Measurements & Calculations LVIDd: 5.2 cm LVOT diam: 2.0 cm LVIDs: 3.5 cm Ao root diam: 2.9 cm FS: 32.4 % asc Aorta Diam: 3.0 cm IVSd: 0.93 cm Ao Arch Diam (Prox Trans): 2.7 cm LVPWd: 0.81 cm LV cosby. diameter/BSA (cm/m^2): 2.6 LV sys. diameter/BSA (cm/m^2): 1.8 LA A2 area: 25.3 cm2 RA long axis: 4.9 cm LA A4 area: 24.4 cm2 RA area: 17.8 cm2 LA length (vol): 5.9 cm RA vol: 55.0 ml LA vol: 89.4 ml RA : 28.1 ml/m2 LA vol index: 45.7 ml/m2 IVC diam: 1.2 cm RVD1 (basal): 3.3 cm RVD2 (mid): 2.8 cm TAPSE: 2.1 cm Doppler Measurements & Calculations Ao V2 max: 139.6 cm/sec LVOT Max Zane: 84.2 cm/sec Ao V2 mean: 94.8 cm/sec LV V1 max P.8 mmHg Ao max P.8 mmHg LV V1 VTI: 20.6 cm Ao mean P.1 mmHg JEAN(I,D): 1.9 cm2 Ao V2 VTI: 34.6 cm JEAN(V,D): 1.9 cm2 sev ratio: 0.60 JEAN indexed to BSA (cm^2/m^2): 0.96 MV E max zane: 63.9 cm/sec PA V2 max: 83.4 cm/sec MV A max zane: 78.2 cm/sec PA V2 mean: 61.8 cm/sec MV E/A: 0.82 PA mean P.7 mmHg Med Peak E' Zane: 4.8 cm/sec PA pr(Accel): 19.1 mmHg E/E' med: 13.2 Lat Peak E' Zane: 6.5 cm/sec E/E' lat: 9.8 E/e' average: 11.5 MV dec time: 0.20 sec [facility] 65.2 ml Reading Physician:DANIEL
== END ==
PROVIDERS: PCP Internal Medicine; Referring Provider Physician Assistant Medical; Visit Provider Physician Assistant Medical
DX: I35.1 Nonrheumatic aortic (valve) insufficiency (principal); I48.0 Paroxysmal atrial fibrillation; R06.00 Dyspnea, unspecified
CPT/HCPCS: 93306

== ENCOUNTER → 2022-02-26 07:56 | Outpatient (CLI) | payer MEDICARE, SELFPAY ==
--- NOTE | 2022-02-26 07:58 | DI.MG.S_ITS ---
BILATERAL DIGITAL SCREENING MAMMOGRAM 3D/2D WITH CAD: 02/26/2022 CLINICAL: Routine screening. Comparison is made to exams dated: 02/24/2021 mammogram, 02/24/2020 mammogram, and 02/22/2019 mammogram - [facility]. There are scattered areas of fibroglandular density in both breasts (category b / 25%-50% glandular tissue). Current study was also evaluated with a Computer Aided Detection (CAD) system. No significant masses, calcifications, or other findings are seen in either breast. There has been no significant interval change. IMPRESSION: NEGATIVE There is no mammographic evidence of malignancy. A 1 year screening mammogram is recommended. Based on the Tyrer Cuzick model (a risk assessment model) the patient's lifetime risk is 6.8% and her 10 year risk is 6.8%. According to the ACR, ACS, and NCCN guidelines, an annual breast MRI exam along with mammogram is recommended if the patient's lifetime risk is 20% or greater. This exam was interpreted at Station ID: [id number]. NOTE: For mammograms, a report in lay terms will be sent to the patient. Approximately 15% of breast malignancies will not be visualized mammographically. In the management of a palpable breast mass, a negative mammogram must not discourage biopsy of a clinically suspicious lesion. Electronically Signed By: Lucila lu/gildardo:02/26/2022 13:23:55 copy to: Joanne Lorenzo letter sent: Normal Exam ACR BI-RADS Category 1: Negative 3341F
== END ==
PROVIDERS: PCP Internal Medicine; Referring Provider Internal Medicine; Visit Provider Internal Medicine
DX: Z12.31 Encounter for screening mammogram for malignant neoplasm of breast (principal)
CPT/HCPCS: 77063; 77067

== ENCOUNTER → 2022-06-21 11:12 | Outpatient (CLI) | payer MEDICARE, SELFPAY ==
[2022-06-21 12:01] LABS: Influenza A - CEPHEID Flu A NEGATIVE (NEGATIVE); Influenza B - CEPHEID Flu B NEGATIVE (NEGATIVE); Respiratory Syncytial Virus Negative (Negative)
[2022-06-21 12:02] LABS: COVID-19 CEPHEID 4-PLEX PCR Negative (Negative)
== END ==
PROVIDERS: PCP Family Medicine; Visit Provider Nurse Practitioner Family
DX: R05.1 Acute cough (principal)
CPT/HCPCS: 0241U

== ENCOUNTER → 2022-06-21 11:23 | Outpatient (CLI) | payer MEDICARE, SELFPAY ==
--- NOTE | 2022-06-21 11:25 | DI.RAD.S_ITS ---
PROCEDURE: XR CHEST 2V INDICATIONS: Cough TECHNIQUE: 2 views of the chest were acquired. COMPARISON: [facility], , CHEST 2 VIEW, 08/04/2017, 11:58. FINDINGS: Surgical changes and devices: None. Lungs and pleura: Lungs are clear. No pleural effusions or pneumothorax. Mediastinum: Mediastinal contours are normal. Heart size is normal. Bones and chest wall: No suspicious bony abnormalities. Soft tissues appear unremarkable. IMPRESSION: No acute cardiopulmonary abnormality. Dictated by: Jamin Pickering M.D. on 06/21/2022 at 11:37 Approved by: Jamin Pickering M.D. on 06/21/2022 at 11:38
== END ==
PROVIDERS: PCP Family Medicine; Referring Provider Nurse Practitioner Family; Visit Provider Nurse Practitioner Family
DX: R05.1 Acute cough (principal)
CPT/HCPCS: 0241U; 71046

== ENCOUNTER → 2022-12-22 08:42 | Outpatient (CLI) | payer MEDICARE, SELFPAY ==
[2022-12-22 09:56] LABS: Cholesterol 200 mg/dL (140-199); HDL Cholesterol 63 mg/dL (40-60); LDL Cholesterol Calculated 117 mg/dL (<100); Triglycerides 99 mg/dL (35-150)
== END ==
PROVIDERS: PCP Family Medicine; Referring Provider Family Medicine; Visit Provider Family Medicine
DX: E78.5 Hyperlipidemia, unspecified (principal); Z78.9 Other specified health status
CPT/HCPCS: 36415; 80061

== ENCOUNTER → 2023-03-23 08:48 | Outpatient (CLI) | payer MEDICARE, SELFPAY ==
[2023-03-23 10:21] LABS: Cholesterol 192 mg/dL (140-199); HDL Cholesterol 69 mg/dL (40-60); LDL Cholesterol Calculated 101 mg/dL (<100); Triglycerides 111 mg/dL (35-150)
[2023-03-23 10:27] LABS: High Sensitivity CRP - Cardiac 0.9 mg/L (1.0-3.0)
[2023-03-23 10:40] LABS: Free T3, Triiodothyronine Free 3.78 pg/mL (2.77-5.27); Free T4, Direct Thyroxine 1.38 ng/dL (0.78-2.19)
[2023-03-23 10:42] LABS: Creatinine Urine Random 102.8 mg/dL
[2023-03-23 10:45] LABS: Microalbumi Creatinin Ratio Ur 11.6 ug/mg CR (<30); Microalbumin Urine Random 1.2 mg/dL (0-1.6)
[2023-03-23 10:53] LABS: Thyroid Stimulating Hormone 0.282 uIU/mL (0.47-4.68)
== END ==
PROVIDERS: PCP Family Medicine; Referring Provider Family Medicine; Visit Provider Family Medicine
DX: E78.5 Hyperlipidemia, unspecified (principal); I48.91 Unspecified atrial fibrillation; M85.80 Other specified disorders of bone density and structure, unspecified site; E03.9 Hypothyroidism, unspecified; I10 Essential (primary) hypertension
CPT/HCPCS: 36415; 80061; 82043; 82570; 84439; 84443; 84481; 86140

== ENCOUNTER → 2023-04-28 15:35 | Outpatient (CLI) | payer MEDICARE, SELFPAY ==
[2023-04-28 16:11] LABS: Add Manual Diff / Slide Review NO; Basophils Absolute Auto 100 /uL (0-100); Basophils Percent Auto 1.1 % (0-2); Eosinophils Absolute Auto 200 /uL (0-450); Eosinophils Percent Auto 2.6 % (2-4); Hematocrit 36.4 % (36-46); Hemoglobin 12.5 g/dL (12.0-16.0); Lymphocytes Absolute Auto 2600 /uL (1100-4500); Lymphocytes Percent Auto 42.2 % (25-40); Mean Corpuscular HGB Conc 34.3 % (30-36); Mean Corpuscular Volume 93.2 fL (80-100); Monocytes Absolute Auto 700 /uL (0-900); Monocytes Percent Auto 10.6 % (3-14); Neutrophils Absolute Auto 2700 /uL (1500-7000); Neutrophils Percent Auto 43.5 % (50-75); Platelet Count 244 X10^3/uL (150-400); Red Blood Cell Count 3.91 X10^6/uL (4.0-5.2); Red Cell Distribution Width 13.3 % (11.6-14.8); White Blood Cell Count 6.1 X10^3/uL (4.5-11.0)
== END ==
PROVIDERS: PCP Family Medicine; Referring Provider Physician Assistant; Visit Provider Physician Assistant
DX: L65.9 Nonscarring hair loss, unspecified (principal)
CPT/HCPCS: 36415; 85025

== ENCOUNTER → 2023-06-08 07:33 | Outpatient (CLI) | payer MEDICARE, SELFPAY ==
[2023-06-08 08:52] LABS: Albumin 3.9 g/dL (3.5-5.0); Calcium 10.3 mg/dL (8.4-10.2)
[2023-06-08 09:09] LABS: Free T3, Triiodothyronine Free 3.75 pg/mL (2.77-5.27); Free T4, Direct Thyroxine 1.19 ng/dL (0.78-2.19)
== END ==
PROVIDERS: PCP Family Medicine; Referring Provider Internal Medicine Endocrinology, Diabetes & Metabolism; Visit Provider Internal Medicine Endocrinology, Diabetes & Metabolism
DX: E04.2 Nontoxic multinodular goiter (principal)
CPT/HCPCS: 36415; 82040; 82310; 84439; 84443; 84481

== ENCOUNTER 2023-06-23 08:00 | Day surgery (SDC) | payer MEDICARE, SELFPAY ==
[2023-06-23 08:24] VITALS: BP 155/79; PULSE 70; RESP 16; TEMP 37.2; O2SAT 100
--- NOTE | 2023-06-23 08:33 | P.HP_ITS ---
History of Present Illness History of Present Illness Date Patient Seen: 06/23/23 Chief complaint: Dx Colonoscopy Narrative: Previous colonoscopy with incomplete polypectomy. Need for repeat colonoscopy to ensure no residual polyp. [facility] Medical History (Updated 04/28/23 @ 15:29 by Rola Cuadra PA-C) A-fib Montanez's esophagus Osteopenia Insomnia Neuropathy of both feet Chronic back pain (2013) Osteoarthritis Peripheral neuropathy (2009) Shoulder pain Lumbar spine pain Foot pain Cervical spine disease (2013) Mumps Measles (~1951) Chicken pox (~1951) Blood clot in vein Anemia (194) Cataracts, bilateral Irregular periods/menstrual cycles Chlamydia History of blood clots (Unknown) History of irregular menstrual cycles (Unknown) Sleep apnea (1999) Generalized headaches Osteopenia Spinal stenosis Mumps (Unknown) Measles (~1951) Chickenpox (~1951) Anemia (1948) Cataracts, both eyes (~2012) Infertility Chlamydia (Unknown) Urinary incontinence Frequent UTI Fecal incontinence (~2010) Hemorrhoids (~07/2014) Colon polyps (~2011) Thyroid nodule (1994) Hypothyroidism (1994) Hypertension (1995) Surgical History Anesthesia History of right cataract surgery (2013) History of left cataract surgery (2012) History of nasal septoplasty (1983) Status post dilation and curettage (1978) History of tonsillectomy (1951) Status post appendectomy (2008) Family History Mother High cholesterol Congestive heart failure Heart disease Mental health problem Father Lung cancer Grandmother No problems noted. Sister Anxiety Sister Anxiety Grandmother Heart disease Grandfather Heart disease Social History household members: spouse Smoking Status: Never smoker alcohol intake: current substance use type: does not use Meds Home Medications and Allergies Home Medications Medication Instructions Recorded Confirmed Type omega-3 fatty acids 1,000 mg 1,000 mg PO DAILY 01/19/18 04/28/23 History capsule (Fish Oil Concentrate) levothyroxine 137 mcg tablet 137 mcg PO QDAY #90 tabs 10/10/18 06/23/23 Rx apixaban 5 mg tablet (Eliquis) 5 mg PO BID 06/17/22 04/28/23 History calcium carbonate 500 mg calcium 500 mg PO TID 06/17/22 04/28/23 History (1,250 mg) tablet (Calcium 500) cyclosporine 0.05 % eye drops in a 1 drp EYE-BOTH BID 06/17/22 04/28/23 History dropperette estradiol 0.01% (0.1 mg/gram) 1 applic vaginal 2XW 06/17/22 04/28/23 History vaginal cream latanoprost 0.005 % eye drops 1 drp EYE-BOTH DAILY 06/17/22 04/28/23 History omeprazole 20 mg capsule,delayed 20 mg PO DAILY 06/17/22 04/28/23 History release timolol maleate 0.5 % eye drops 1 drp EYE-BOTH TID 06/17/22 04/28/23 History trazodone 100 mg tablet 150 mg (1.5 x 100 mg) PO BEDTIME 12/18/22 04/28/23 Rx PRN sleep #135 tabs triamcinolone acetonide 0.1 % 1 applic topical DAILY #30 grams 12/18/22 04/28/23 Rx topical ointment liothyronine 5 mcg tablet (Cytomel) 5 mcg PO QAM #30 tabs 12/23/22 06/23/23 Rx amlodipine 5 mg tablet (Norvasc) 5 mg PO QDAY #90 tabs 02/23/23 06/23/23 Rx metoprolol succinate 25 mg 12.5 mg (1/2 x 25 mg) PO DAILY #90 02/23/23 06/23/23 Rx tablet,extended release 24 hr tabs teriparatide 20 mcg/dose (600 20 mcg SUBCUT DAILY 04/28/23 06/23/23 History mcg/2.4 mL) subcutaneous pen injector (Forteo) undecylenic acid 25 % topical 1 applic topical BID #3 mL 04/30/23 Rx solution (Fungi-Nail) [id number] C-E-herbal 1 tab DAILY 06/23/23 06/23/23 History multivitamin 1 tab PO DAILY 06/23/23 06/23/23 History Allergies Allergy/AdvReac Type Severity Reaction Status Date / Time codeine AdvReac Mild Gastrointestinal Verified 06/23/23 08:22 Upset duloxetine AdvReac Mild altered Verified 06/23/23 08:22 mental state Exam Vital Signs (past 8 hours): - 06/23/23 08:24 Temperature 99.0 F Pulse Rate 70 Respiratory Rate 16 Blood Pressure 155/79 H Pulse Oximetry 100 Oxygen Delivery Method Room Air Oxygen Delivery Method Room Air Narrative Exam Narrative: Oropharynx free of lesions Chest clear to auscultation percussion Cardiac exam reveals no S3 or murmur Assessment & Plan Assessment & Plan narrative: Incomplete polypectomy previously need to check for no residual polyp. Risks, benefits, alternatives have been explained.
--- NOTE | 2023-06-23 08:34 | PM.OP.COLON ---
Operative Date/Time/Diagnoses Date of procedure: 06/23/23 Pre-op diagnosis: See indication and findings Procedure & Clinicians Study performed: Colonoscopy Indications: Previous incomplete polypectomy check for completion Surgeon: Darleen Quiroz Procedure Notes Procedure in detail: After informed consent was obtained the patient was placed in left lateral decubitus position. The video colonoscope was placed in the rectum slowly advanced cecum. Preparation was good. On slow withdrawal mucosa was carefully examined. The scope was removed. The patient tolerated procedure well. Blood loss none Complications none Sedation mac Findings 1. Normal colonoscopy to cecum Routinely Faywould not need colonoscopy for 5 years when she is 83. Would not plan on colonoscopy at that time unless in excellent health.
[2023-06-23] MEDS: LACTATED RINGERS 1,000 ML 42 ML IV (08:37)
[2023-06-23 09:26] VITALS: BP 112/58; PULSE 60; RESP 12; TEMP 36.9; O2SAT 94
[2023-06-23 09:30] VITALS: BP 118/61; PULSE 58; RESP 14; O2SAT 94
[2023-06-23 09:36] VITALS: BP 112/68; PULSE 66; RESP 19; O2SAT 95
[2023-06-23 09:41] VITALS: BP 127/75; PULSE 60; RESP 17; TEMP 37; O2SAT 93
== END 2023-06-23 09:54 | disposition home or self-care (01) ==
PROVIDERS: PCP Family Medicine; Referring Provider Internal Medicine Gastroenterology; Visit Provider Internal Medicine Gastroenterology
PROC: 0DJD8ZZ Inspection of Lower Intestinal Tract, Via Natural or Artificial Opening Endoscopic (ICD-10-PCS; CPT 45378; principal; 2023-06-23 09:00)
DX: Z12.11 Encounter for screening for malignant neoplasm of colon (principal)
CPT/HCPCS: G0105; J2704

== ENCOUNTER → 2023-10-29 13:20 | Outpatient (CLI) | payer MEDICARE, SELFPAY ==
[2023-10-29 15:26] LABS: Free T4, Direct Thyroxine 1.55 ng/dL (0.78-2.19)
[2023-10-29 15:40] LABS: Thyroid Stimulating Hormone 0.192 uIU/mL (0.47-4.68)
== END ==
PROVIDERS: PCP Family Medicine; Referring Provider Internal Medicine Endocrinology, Diabetes & Metabolism; Visit Provider Internal Medicine Endocrinology, Diabetes & Metabolism
DX: E03.9 Hypothyroidism, unspecified (principal); E04.2 Nontoxic multinodular goiter; M81.0 Age-related osteoporosis without current pathological fracture
CPT/HCPCS: 36415; 84439; 84443

== ENCOUNTER → 2024-01-10 08:11 | Outpatient (CLI) | payer MEDICARE, SELFPAY ==
[2024-01-10 09:42] LABS: Free T4, Direct Thyroxine 1.23 ng/dL (0.78-2.19)
[2024-01-10 09:56] LABS: Thyroid Stimulating Hormone 1.16 uIU/mL (0.47-4.68)
[2024-01-11 13:36] LABS: Calcium 10.4 mg/dL (8.7-10.3); Parathyroid Hormone, Intact 21 pg/mL (15-65)
== END ==
PROVIDERS: Internal Medicine Endocrinology, Diabetes & Metabolism; PCP Family Medicine; Referring Provider Physician Assistant; Visit Provider Physician Assistant
DX: E04.2 Nontoxic multinodular goiter (principal); E03.9 Hypothyroidism, unspecified; E04.1 Nontoxic single thyroid nodule; E83.52 Hypercalcemia
CPT/HCPCS: 36415; 82310; 83970; 84439; 84443

== ENCOUNTER → 2024-02-14 10:44 | Outpatient (CLI) | payer MEDICARE, SELFPAY | PROVIDERS: PCP Family Medicine; Referring Provider Family Medicine; Visit Provider Family Medicine | DX: M85.80 Other specified disorders of bone density and structure, unspecified site (principal); M81.0 Age-related osteoporosis without current pathological fracture; E78.5 Hyperlipidemia, unspecified; I10 Essential (primary) hypertension; E03.9 Hypothyroidism, unspecified; I48.20 Chronic atrial fibrillation, unspecified; R74.8 Abnormal levels of other serum enzymes | CPT/HCPCS: 36415; 82523; 82570 ==

== ENCOUNTER → 2024-03-06 11:10 | Outpatient (CLI) | payer MEDICARE, SELFPAY ==
--- NOTE | 2024-03-06 11:12 | DI.MG.S_ITS ---
BILATERAL DIGITAL SCREENING MAMMOGRAM 3D/2D WITH CAD: 03/06/2024 CLINICAL: Routine screening. Comparison is made to exams dated: 03/01/2023 mammogram - [facility], 02/26/2022 mammogram, and 02/24/2021 mammogram - [facility]. There are scattered areas of fibroglandular density (category b / 25%-50% glandular tissue). Current study was also evaluated with a Computer Aided Detection (CAD) system. There is a possible new irregular asymmetry in the left breast middle depth central to the nipple seen on the craniocaudal view only. There is architectural distortion associated with the asymmetry. No other significant masses, calcifications, or other findings are seen in either breast. IMPRESSION: INCOMPLETE: NEED ADDITIONAL IMAGING EVALUATION The possible new irregular asymmetry in the left breast is indeterminate. Additional views with possible ultrasound are recommended. Based on the Tyrer Cuzick model (a risk assessment model) the patient's lifetime risk is 5.6% and her 10 year risk is 0.0%. According to the ACR, ACS, and NCCN guidelines, an annual breast MRI exam along with mammogram is recommended if the patient's lifetime risk is 20% or greater. This exam was interpreted at Station ID: [id number]. NOTE: For mammograms, a report in lay terms will be sent to the patient. Approximately 15% of breast malignancies will not be visualized mammographically. In the management of a palpable breast mass, a negative mammogram must not discourage biopsy of a clinically suspicious lesion. Electronically Signed By: Yfn Bolden M.D. aty/:03/06/2024 17:16:06 letter sent: Additional Imaging Needed ACR BI-RADS Category 0: Incomplete: Need Additional Imaging Evaluation
== END ==
PROVIDERS: PCP Family Medicine; Referring Provider Family Medicine; Visit Provider Family Medicine
DX: Z12.31 Encounter for screening mammogram for malignant neoplasm of breast (principal)
CPT/HCPCS: 77063; 77067

== ENCOUNTER → 2024-03-22 11:01 | Outpatient (CLI) | payer MEDICARE, SELFPAY ==
[2024-03-22 12:02] LABS: Albumin 4.1 g/dL (3.5-5.0); Albumin Globulin Ratio 1.6 (1.0-2.8); Carbon Dioxide 27 mmol/L (22-32); Globulin 2.6 g/dL (1.7-4.1); Total Protein 6.7 g/dL (6.3-8.2)
[2024-03-22 12:19] LABS: Alanine Aminotransferase 23 IU/L (<35); Alkaline Phosphatase 138 U/L (38-126); Aspartate Aminotransferase 22 IU/L (14-36); BUN Creatinine Ratio 32.3 (6-22); Bilirubin Total 0.5 mg/dL (0.2-1.3); Blood Urea Nitrogen 30 mg/dL (7-17); Calcium 10.4 mg/dL (8.4-10.2); Chloride 103 mmol/L (98-107); Estimated Glomerular Filt Rate > 60 mL/min (>60); Glucose 96 mg/dL (80-110); HEMOLYSIS < 15 (0-50); Potassium 4.4 mmol/L (3.4-5.1); Sodium 135 mmol/L (137-145)
[2024-03-24 12:10] LABS: Creatinine, Urine 86.3 mg/dL (Not Estab.); N-telo/Creat. Ratio 54 (0-89); N-telopeptide 416 nmol BCE (Not Estab.)
[2024-03-25 15:36] LABS: C-Telopeptide, Serum 545 pg/mL (.)
== END ==
PROVIDERS: PCP Family Medicine; Referring Provider Family Medicine; Visit Provider Family Medicine
DX: M85.80 Other specified disorders of bone density and structure, unspecified site (principal); E78.5 Hyperlipidemia, unspecified
CPT/HCPCS: 36415; 80053; 82523

== ENCOUNTER → 2024-03-29 11:56 | Outpatient (CLI) | payer MEDICARE, SELFPAY ==
--- NOTE | 2024-03-29 11:57 | DI.MG.S_ITS ---
UNILATERAL LEFT DIGITAL DIAGNOSTIC MAMMOGRAM 3D/2D WITH ADDITIONAL VIEWS: 03/29/2024 CLINICAL: Additional evaluation requested from prior study. Comparison is made to exams dated: 03/06/2024 mammogram - [facility], 03/01/2023 mammogram - [facility], 02/26/2022 mammogram, and 02/24/2021 mammogram - [facility]. There are scattered areas of fibroglandular density (category b / 25%-50% glandular tissue). The asymmetry in the left breast middle depth central to the nipple seen on the craniocaudal view only is not seen in additional views. No other significant masses or calcifications are seen in the breast. IMPRESSION: BENIGN The asymmetry on screening mammogram likely represents superimposed breast tissue and is benign. There is no mammographic evidence of malignancy. Return to annual mammogram screening schedule is recommended. Based on the Tyrer Cuzick model (a risk assessment model) the patient's lifetime risk is 5.1% and her 10 year risk is 0.0%. According to the ACR, ACS, and NCCN guidelines, an annual breast MRI exam along with mammogram is recommended if the patient's lifetime risk is 20% or greater. This exam was interpreted at Station ID: [id number]. NOTE: For mammograms, a report in lay terms will be sent to the patient. Approximately 15% of breast malignancies will not be visualized mammographically. In the management of a palpable breast mass, a negative mammogram must not discourage biopsy of a clinically suspicious lesion. Electronically Signed By: eLny la/:03/29/2024 12:38:57 letter sent: Normal Exam ACR BI-RADS Category 2: Benign
== END ==
PROVIDERS: PCP Family Medicine; Referring Provider Family Medicine; Visit Provider Family Medicine
DX: R92.8 Other abnormal and inconclusive findings on diagnostic imaging of breast (principal); N64.89 Other specified disorders of breast
CPT/HCPCS: 77065; G0279

== ENCOUNTER → 2024-04-27 07:07 | Outpatient (CLI) | payer MEDICARE, SELFPAY ==
[2024-04-27 07:58] LABS: Alanine Aminotransferase 22 IU/L (<35); Albumin 4.1 g/dL (3.5-5.0); Albumin Globulin Ratio 1.6 (1.0-2.8); Alkaline Phosphatase 114 U/L (38-126); Aspartate Aminotransferase 22 IU/L (14-36); BUN Creatinine Ratio 32.1 (6-22); Bilirubin Total 0.5 mg/dL (0.2-1.3); Blood Urea Nitrogen 27 mg/dL (7-17); Calcium 10.2 mg/dL (8.4-10.2); Carbon Dioxide 31 mmol/L (22-32); Chloride 105 mmol/L (98-107); Estimated Glomerular Filt Rate > 60 mL/min (>60); Globulin 2.5 g/dL (1.7-4.1); Glucose 90 mg/dL (80-110); HEMOLYSIS < 15 (0-50); Potassium 4.2 mmol/L (3.4-5.1); Sodium 139 mmol/L (137-145); Total Protein 6.6 g/dL (6.3-8.2)
[2024-04-27 08:15] LABS: T4 Total Thyroxine 9.41 ug/dL (5.5-11.0)
[2024-04-27 08:16] LABS: Vitamin D 25 Hydroxy (D3) 96.3 ng/mL (30.0-100.0)
[2024-04-27 15:52] LABS: Albumin 4.3 g/dL (3.5-5.0); BUN Creatinine Ratio 33.7 (6-22); Blood Urea Nitrogen 28 mg/dL (7-17); Calcium 10.3 mg/dL (8.4-10.2); Carbon Dioxide 28 mmol/L (22-32); Chloride 105 mmol/L (98-107); Estimated Glomerular Filt Rate > 60 mL/min (>60); Glucose 93 mg/dL (80-110); HEMOLYSIS < 15 (0-50); Phosphorous 3.5 mg/dL (2.8-4.1); Potassium 4.2 mmol/L (3.4-5.1); Sodium 139 mmol/L (137-145)
[2024-04-28 10:08] LABS: Parathyroid Hormone, Intact 22 pg/mL (15-65)
== END ==
PROVIDERS: PCP Family Medicine; Referring Provider Student in an Organized Health Care Education/Training Program; Visit Provider Student in an Organized Health Care Education/Training Program
DX: E04.1 Nontoxic single thyroid nodule; M81.0 Age-related osteoporosis without current pathological fracture; E83.52 Hypercalcemia; Z78.9 Other specified health status; E78.5 Hyperlipidemia, unspecified; I10 Essential (primary) hypertension
CPT/HCPCS: 36415; 80053; 80069; 82306; 82310; 82523; 83970; 84436; 84443

== ENCOUNTER → 2024-09-05 10:06 | Outpatient (CLI) | payer MEDICARE, SELFPAY ==
[2024-09-08 13:10] LABS: Creatinine, Urine 50.9 mg/dL (Not Estab.); N-telo/Creat. Ratio 25 (0-89); N-telopeptide 114 nmol BCE (Not Estab.)
== END ==
PROVIDERS: PCP Family Medicine; Referring Provider Family Medicine; Visit Provider Family Medicine
DX: M81.0 Age-related osteoporosis without current pathological fracture (principal)
CPT/HCPCS: 82523

== ENCOUNTER → 2024-10-26 07:36 | Outpatient (CLI) | payer MEDICARE, SELFPAY ==
[2024-10-26 08:31] LABS: Albumin 4.2 g/dL (3.5-5.0); Blood Urea Nitrogen 24 mg/dL (7-17); Calcium 9.7 mg/dL (8.4-10.2); Carbon Dioxide 24 mmol/L (22-32); Chloride 107 mmol/L (98-107); Estimated Glomerular Filt Rate > 60 mL/min (>60); Glucose 93 mg/dL (70-99); HEMOLYSIS < 15 (0-50); Phosphorous 3.8 mg/dL (2.8-4.1); Potassium 4.1 mmol/L (3.4-5.1); Sodium 139 mmol/L (137-145)
[2024-10-26 08:48] LABS: Vitamin D 25 Hydroxy (D3) > 126 ng/mL (30.0-100.0)
[2024-10-26 09:02] LABS: Free T4, Direct Thyroxine 1.24 ng/dL (0.78-2.19)
[2024-10-26 09:16] LABS: Thyroid Stimulating Hormone 0.068 uIU/mL (0.47-4.68)
[2024-10-27 09:13] LABS: Calcium 9.6 mg/dL (8.7-10.3); Parathyroid Hormone, Intact 42 pg/mL (15-65)
== END ==
PROVIDERS: PCP Family Medicine; Referring Provider Student in an Organized Health Care Education/Training Program; Visit Provider Student in an Organized Health Care Education/Training Program
DX: E04.1 Nontoxic single thyroid nodule (principal); M81.0 Age-related osteoporosis without current pathological fracture
CPT/HCPCS: 36415; 80069; 82306; 82310; 83970; 84439; 84443

== ENCOUNTER → 2025-03-07 09:53 | Outpatient (CLI) | payer MEDICARE, SELFPAY ==
--- NOTE | 2025-03-07 09:54 | DI.MG.S_ITS ---
MM diagnostic mammo BI: 03/07/2025. BI-RADS: 1 CLINICAL: 79-year old female for bilateral diagnostic mammogram. Tyrer-Cuzick lifetime risk of 7.5%. Current reported family history of breast cancer: sister. The patient reports diffuse pain (less than 1 month) in both breasts that has since resolved after adjustments were made to the patient's HRT dosage. The patient denies any pain today. PRIOR EXAMS 03/06/2024, 03/01/2023, 02/26/2022, 02/24/2021. MAMMOGRAPHY TECHNIQUE: 2D and 3D (tomosynthesis) digital mammographic views obtained, with additional images as needed for full coverage. Current study was also evaluated with a Computer Aided Detection (CAD) system. DENSITY C. The breasts are heterogeneously dense, which may obscure small masses. MAMMOGRAPHY FINDINGS Bilateral: No suspicious mass, asymmetry, microcalcification, or other abnormality seen. IMPRESSION: * No evidence of malignancy. RECOMMENDATIONS Bilateral * Diffuse, non-focal symptoms, such as pain or fullness are typically benign. Clinical follow-up is recommended, and further management of these symptoms should be based on the results of clinical evaluation. If diffuse symptoms persist or become more focal in nature, further clinical evaluation should be considered. * Annual screening mammography. COMMENTS: Findings and recommendations were conveyed to the patient during today's evaluation. OVERALL ASSESSMENT CATEGORY BI-RADS-1: Negative. The [employer] recommends annual screening mammography beginning at age 40 for women with average risk of breast cancer. ELECTRONICALLY SIGNED: Salina Napier M.D. on 03/07/2025 at 11:23:23 AM PT Interpreting Station ID: [id number]
--- OUTSIDE RECORDS SUMMARY | 2025-03-09 14:36 | XMS_ITS | Encounter Summary ---
Author Organization [facility] Address [facility] [address] Care Team Providers Care Vine Pruner Name Role Phone GeraLiz ramos FAMILY PROTECTION SPECIALIST Unavailable [phone] Grant Gutierrez Primary Care Provider Nikia Sinclair MD Primary Care Provider Maggi Yeager DO Primary Care Provider Encounter Details Date Type Department Care Team (Late st Contact Info) Description 09/10/2021 Documentation ENDOCRINOLOGY - [place], [place] [address] [place] [phone] Serge Roy MD HIM Unable to Validate Social History Tobacco Use Types Packs/Day Years Used Date Smoking Tobacco: Never Smokeless Tobacco: Never Comments:exposed to secondha nd smoke from father Alcohol Use Standard Drinks/Week Comments Yes 2 (1 standard drink = 0.6 oz pur e alcohol) rare Comments Unknown Sex and Gender Information Value Date Recorded Sex Assigned at Female 12/10/2023 9:29 PM PDT Legal Sex Female 9:04 AM PDT Gender Identity Female 12/10/2023 9:29 PM PDT Sexual Orientation Not on file Occupation Industry Job Start Date Job End Date retired Not on file Not on file Not on file documented as of this encounter Plan of Treatment Not on file documented as of this encounter Visit Diagnoses Not on filedocumented in this encounter Care Teams Vine Pruner Relationship Specialty Start Date End Date Grant Gutierrez ARNP [address] [address] PCP - General Nurse Practitioner 09/17/20 12/15/21 Nikia Sinclair MD [address] [place] [address] PCP - General Internal Medicine 12/16/21 05/17/23 Maggi Yeager DO [address] [place] [address] PCP - General 05/18/23 Liz Boss NP Nurse Practitioner Nurse Practitioner 07/25/15 documented as of this encounter
--- OUTSIDE RECORDS SUMMARY | 2025-03-09 14:36 | XMS_ITS | Encounter Summary ---
Author Organization [facility] Address [address] [address] Care Team Providers Care Consumer Services Consultant Name Role Phone Liz Boss SUPPOSITORY MOLDING MACHINE OPERATOR Unavailable [phone] Nikia Sinclair MD Primary Care Provider [phone] Maggi Yeager DO Primary Care Provider [phone] Encounter Details Date Type Department Care Team (Late st Contact Info) Description 03/26/2022 Scanned Document SCANNED ONLY Scanned, Document Social History Tobacco Use Types Packs/Day Years [...] on filedocumented in this encounter Care Teams Consumer Services Consultant Relationship Specialty Start Date End Date Nikia Sinclair MD PCP - General Internal Medicine 12/16/21 05/17/23 Maggi Yeager DO [address] [address] PCP - General 05/18/23 Liz Boss NP Nurse Practitioner Nurse Practitioner 07/25/15 documented as of this encounter
--- OUTSIDE RECORDS SUMMARY | 2025-03-09 14:36 | XMS_ITS | Encounter Summary ---
Author Organization [facility] Address [facility] [address] Care Team Providers Care Web Art Director Name Role Phone Liz Boss AIR CONDITIONING SUPERVISOR Unavailable [phone] Nikia Sinclair MD Primary Care Provider WeeksMaggi DO Primary Care Provider [phone] Encounter Details Date Type Department Care Team (Late st Contact Info) Description 12/27/2021 Documentation ENDOCRINOLOGY - [place], [place] [address] [place] [phone] Serge Roy MD HIM Unable to Validate [...] on file documented as of this encounter Progress Notes * Val Damon RN - 12/27/2021 2:11 PM PDT Patient notified via voicemail. documented in this encounter Plan of Treatment Not on file documented as of this encounter Visit Diagnoses Not on filedocumented in this encounter Care Teams Web Art Director Relationship Specialty Start Date End Date Nikia Sinclair MD PCP - General Internal Medicine 12/16/21 05/17/23 Maggi Yeager DO [address] [address] PCP - General 05/18/23 Liz Boss NP Nurse Practitioner Nurse Practitioner 07/25/15 documented as of this encounter
--- OUTSIDE RECORDS SUMMARY | 2025-03-09 14:36 | XMS_ITS | Encounter Summary ---
Author Organization [facility] Address [address] [address] Care Team Providers Care Repairer Wood Furniture Name Role Phone Liz Boss ROLL WRAPPER Unavailable [phone] Nikia Sinclair MD Primary Care Provider [phone] Maggi Yeager DO Primary Care Provider [phone] Encounter Details Date Type Department Care Team (Late st Contact Info) Description 12/25/2021 Scanned Document SCANNED ONLY Scanned, Document Social [...] on filedocumented in this encounter Care Teams Repairer Wood Furniture Relationship Specialty Start Date End Date Nikia Sinclair MD PCP - General Internal Medicine 12/16/21 05/17/23 Maggi Yeager DO [address] [address] PCP - General 05/18/23 Liz Boss NP Nurse Practitioner Nurse Practitioner 07/25/15 documented as of this encounter
--- OUTSIDE RECORDS SUMMARY | 2025-03-09 14:36 | XMS_ITS | Encounter Summary ---
Author Organization [facility] Address [address] [place] [address] Care Team Providers Care Hot Billet Shear Operator Name Role Phone Maggi Yeager DO Primary Care Provider [phone] Encounter Details Date Type Department Care Team (Late st Contact Info) Description 11/18/2017 Refill [facility] Cardiology [address], [address] [place] [address] Anirudh Hampton MD [address] [place] [address] [place] [address] Social History Tobacco Use Types Packs/Day Years Used Date Smoking Tobacco: Never Smokeless Tobacco: Never Alcohol Use Standard Drinks/Week Comments No 0 (1 standard drink = 0.6 oz pur e alcohol) Comments Unknown Sex and Gender Information Value Date Recorded Sex Assigned at Female 03/28/2021 2:52 PM PST Legal Sex Female 5:29 PM PDT Gender Identity Female 03/28/2021 2:52 PM PST Sexual Orientation Not on file documented as of this encounter Plan of Treatment Upcoming Encounters Date Type Department Care Team (Late st Contact Info) Description 03/13/2025 1:40 PM PST Office Visit [facility] Cardiology [address], [place] [address] Santino Gonzalez PA-C [facility] [address] [place] [address] 05/17/2025 1:10 PM PST Office Visit [facility] Foot and Ankle [address] [phone] Jaden Mejia DPM [facility] [address] [place] [address] 08/16/2025 11:00 AM PDT [facility] [address] [facility] [address] [place] [phone] Be Walker DO [address] [place] [phone] documented as of this encounter Visit Diagnoses Not on filedocumented in this encounter Care Teams Hot Billet Shear Operator Relationship Specialty Start Date End Date Shobha, DO Maggi [address] [place] [address] PCP - General Family Medicine 09/20/24 documented as of this encounter
--- OUTSIDE RECORDS SUMMARY | 2025-03-09 14:36 | XMS_ITS | Encounter Summary ---
Author Organization Loc[facility] Address [address] [place] [address] Care Team Providers Care Manager Budget Name Role Phone Maggi Yeager DO Primary Care Provider [phone] Encounter Details Date Type Department Care Team (Late st Contact Info) Description 01/20/2022 Orders Only [facility] Cardiology [place] [address] [facility], [place] [address] Brooks Ireland PA [address], [place] [address] Paroxysmal atrial fibrillation (CMS/HCC); Dyspnea on exertion Social History Tobacco Use Types Packs/Day Years Used Date Smoking Tobacco: Never Smokeless Tobacco: Never Alcohol Use Standard Drinks/Week Comments Yes 1 (1 standard drink = 0.6 oz pur e alcohol) Comments No Sex and Gender Information Value Date Recorded Sex Assigned at Female 03/28/2021 2:52 PM PST Legal Sex Female 5:29 PM PDT Gender Identity Female 03/28/2021 2:52 PM PST Sexual Orientation Not on file documented as of this encounter Plan of Treatment Upcoming Encounters Date Type Department Care Team (Late st Contact Info) Description 03/13/2025 1:40 PM PST Office Visit [facility] Cardiology [address], [place] [address] Santino Gonzalez PAShai [address] [place] [address] 05/17/2025 1:10 PM PST Office Visit [facility] Foot and Ankle [address] [place] [address] Jaden Mejia DPM [facility] [address] [facility] [address] [place], [place] [phone] 08/16/2025 11:00 AM PDT Office Visit [facility] [place] Endocrinology [address] [place] [address] Be Walker DO [address] [place] [address] documented as of this encounter Procedures Procedure Name Priority Date/Time Associated Diagnosis Comments ECHOCARDIOGRAM COMPLETE Routine 01/19/2022 Paroxysmal atrial fibrillation (CMS/HCC) Dyspnea on exertion documented in this encounter Results * ECHOCARDIOGRAM COMPLETE (01/19/2022) Anatomical Region Laterality Modality N/A Ultrasound Brooks [facility] ECHO PROCEDURES Final Result documented in this encounter Visit Diagnoses Diagnosis Paroxysmal atrial fibrillation (CMS/HCC) Atrial fibrillation Dyspnea on exertion Other dyspnea and respiratory abnormality Paroxysmal atrial fibrillation (CMS/HCC)- Primary Atrial fibrillation documented in this encounter Care Teams Manager Budget Relationship Specialty Start Date End Date Maggi Yeager DO [address] [place] [address] [address] [place] [address] PCP - General Family Medicine 09/20/24 documented as of this encounter
--- OUTSIDE RECORDS SUMMARY | 2025-03-09 14:36 | XMS_ITS | Encounter Summary ---
Author Organization [facility] Address [address] [address] Care Team Providers Care Equipment Manager Name Role Phone GeraLiz ramos VASCULAR TECHNOLOGIST Unavailable [phone] Nikia Sinclair MD Primary Care Provider Maggi Yeager DO Primary Care Provider [phone] Encounter Details Date Type Department Care Team (Late st Contact Info) Description 10/07/2022 Documentation [facility] CRUSHING MACHINE OPERATOR Scanned, Document Social History Tobacco Use Types [...] on filedocumented in this encounter Care Teams Equipment Manager Relationship Specialty Start Date End Date Nikia Sinclair MD PCP - General Internal Medicine 12/16/21 05/17/23 Maggi Yeager DO [address] [address] PCP - General 05/18/23 Liz Boss NP Nurse Practitioner Nurse Practitioner 07/25/15 documented as of this encounter
--- OUTSIDE RECORDS SUMMARY | 2025-03-09 14:36 | XMS_ITS | Encounter Summary ---
Author Organization [facility] Address [address] [place] [address] Care Team Providers Care Electronics Technician Name Role Phone Maggi Yeager DO Primary Care Provider [phone] Reason for Visit * Reason Comments Med Refill Encounter Details Date Type Department Care Team (Late Contact Info) Description 10/05/2021 Refill [facility] Cardiology [address], [address] [place] [address] Anirudh Hampton MD [address] [place] [address] [place] [address] Social History Tobacco Use Types Packs/Day [...] on file documented as of this encounter Functional Status documented as of this encounter Plan of Treatment Upcoming Encounters Date Type Department Care Team (Late Contact Info) Description 03/13/2025 1:40 PM PST Office Visit [facility] Cardiology [address], [place] [phone] Santino Gonzalez PA-C [address] [place] [address] 05/17/2025 1:10 PM PST Office Visit [facility] Foot [facility]le [address], [place] [address] Jaden Mejia DPM [facility] [address] [place] [phone] 08/16/2025 11:00 AM PDT Office Visit [facility] [address] Endocrinology [address] [facility] [address] [place] [address] Be Walker DO [address] [place] [address] documented as of this encounter Visit Diagnoses Not on filedocumented in this encounter Care Teams Electronics Technician Relationship Specialty Start Date End Date Maggi Yeager DO [address] [place] [address] PCP - General Family Medicine 09/20/24 documented as of this encounter
--- OUTSIDE RECORDS SUMMARY | 2025-03-09 14:36 | XMS_ITS | Encounter Summary ---
Author Organization [facility] Address [address] [address] Care Team Providers Care Gas Distribution And Emergency Clerk Name Role Phone GeraLiz pyle BLADE CHANGER Unavailable [phone] Grant Gutierrez Primary Care Provider Nikia Sinclair MD Primary Care Provider Maggi Yeager DO Primary Care Provider [phone] Encounter Details Date Type Department Care Team (Late st Contact Info) Description 09/10/2021 Documentation [facility] TIRE TRIMMER HAND Scanned, Document Social History Tobacco Use Types [...] on filedocumented in this encounter Care Teams Gas Distribution And Emergency Clerk Relationship Specialty Start Date End Date Grant Gutierrez ARNP [address] [address] [place] [address] PCP - General Nurse Practitioner 09/17/20 12/15/21 Nikia Sinclair MD [address] [place] [id number] PCP - General Internal Medicine 12/16/21 05/17/23 Maggi Yeager DO [address] [place] [id number] PCP - General 05/18/23 Liz Boss NP Nurse Practitioner Nurse Practitioner 07/25/15 documented as of this encounter
--- OUTSIDE RECORDS SUMMARY | 2025-03-09 14:36 | XMS_ITS | Clinical Summary ---
Author Organization [facility] Address [address] [place] [address] Care Team Providers Care Hot Room Attendant Name Role Phone Maggi Yeager Primary Care Provider [phone] Allergies Active Allergy Reactions Criticality Noted Date Comments Codeine GI:Nausea/vomiting Medium 04/03/2014 Other reaction(s): Nausea Other reaction(s): Nausea Other reaction(s): Nausea Other reaction(s): Nausea Duloxetine Hcl Other Low 02/19/2021 Other reaction(s): Adverse Drug Reaction Mirtazapine Other Low 02/19/2021 Other reaction(s): Adverse Drug Reaction Medications atorvastatin 20 MG tablet Take 20 mg by mouth. 10/15/2021 Active traZODone 100 MG tablet Take 1.5 tablets (150 mg) by mouth at bedtime. 04/16/2022 Active levothyroxine 137 MCG tablet Take 1 tablet (137 mcg) by mouth. 06/03/2021 Active levothyroxine 137 MCG tablet 04/14/2022 Acti ve Eliquis 5 MG tablet 04/21/2022 Active amLODIPine 10 MG tablet Take 1 tablet (10 mg) by mouth. Active omeprazole [address] capsule Take 1 capsule (20 mg) by mouth. 06/09/2021 Active metoprolol succinate ER 25 MG 24 hr tablet 0.5 tablets (12.5 mg). 03/29/2022 Active estradiol 0.1 MG/GM vaginal cream 03/23/2022 Active timolol maleate 0.5 % ophthalmic solution INSTILL 1 DROP IN BOTH EYES TWICE DAILY DIRECTED 04/21/2022 Active cycloSPORINE 0.05 % ophthalmic emulsion INSTILL 1 DROP IN BOTH EYES TWICE DAILY DIRECTED 02/17/2022 Active cholecalciferol 25 mcg (1,000 unit) capsule Take 1 capsule (1,000 units) by mouth. Active [place]-3 Fatty Acids (HitlabCaps [place]-3) 350 MG capsule Take 1 capsule by mouth. Active Other Meds (See Sig/Instruction s) Ivizia per pt Active olopatadine 0.1 % ophthalmic solution Prn per pt Active Multiple Vitamin (MULTIVITAMIN OR) Take by mouth. Active B Complex Vitamins (VITAMIN B COMPLEX OR) Take by mouth. Active gabapentin 300 MG capsule Take 1 capsule (300 mg) by mouth at bedtime. 07/22/2022 Active Active Problems Problem Noted Date Diagnosed Date Abnormality of gait 04/24/2022 Neck pain 04/24/2022 Social History Tobacco Use Types Packs/Day Years Used Date Smoking Tobacco: Never Smokeless Tobacco: Never Tobacco Cessation:Counseling Given: Not Answered Alcohol Use Standard Drinks/Week Comments Yes 0 (1 standard drink = 0.6 oz pur e alcohol) rare Comments Unknown Sex and Gender Information Value Date Recorded Sex Assigned at Female 07/29/2022 7:01 PM PDT Legal Sex Female 4:20 PM PST Gender Identity Female 07/29/2022 7:01 PM PDT Sexual Orientation Straight 07/29/2022 7: 01 PM PDT Last Filed Vital Signs Vital Sign Reading Time Taken Comments Blood Pressure 156/69 12/11/2022 12:38 PM PDT Pulse 62 12/11/2022 12:38 PM PDT Temperature 36.7 C (98.1 F) 12/11/2022 12:38 PM PDT Respiratory Rate - - Oxygen Saturation 98% 12/11/2022 12:38 PM PDT Inhaled Oxygen Concentration - - Weight 86.2 kg (190 lb) 12/11/2022 12:38 PM PDT Height 167.6 cm (5' 6) 12/11/2022 12:38 PM PDT Body Mass Index 30.67 12/11/2022 12:38 PM PDT Plan of Treatment Health Maintenance Due Date Last Done Comments Depression Screening (PHQ-2) 1957 Medicare Annual Wellness Visit 1964 Lipid Disorders Screening 1976 RSV Vaccine (1 - 1-dose 75+ series) 2021 COVID-19 Vaccine ( season) 2024 12/27/2023, 08/16/2023, 01/18/2023, Additional history exists Influenza Vaccine (#1) 2025 2, 01/17/2021, 12/20/2020, Additional history exists DTaP, Tdap and Td Vaccines (6 - Td or Tdap) 07/18/2028 07/18/2018, 07/23/2015, 07/23/2015, Additional history exists Zoster Vaccine Completed 12/08/2017, 08/17, 09/25/2011 Pneumococcal Vaccine: 50+ Years Completed 02/11/2021, 06/22/2018, 09/02/2017, Additional history exists Hepatitis C Screening Completed 03/26/2021 Osteoporosis Screening Completed 3, 11/26/2022, 09/19/2021, Additional history exists HPV Vaccine Aged Out No longer eligi ble based on patient's age to complete this topic Hepatitis A Vaccine Aged Out No longe r eligible based on patient's age to complete this topic Hepatitis B Vaccine Aged Out No longe r eligible based on patient's age to complete this topic Meningococcal B Vaccine Aged Out No l onger eligible based on patient's age to complete this topic Insurance [employer] MEDICARE [place] [id number] Care Teams Hot Room Attendant Relationship Specialty Start Date End Date Shobha, DO Maggi [facility] [address] [place] [address], [address] [place] [address] PCP - General Family Practice 07/31/22
--- OUTSIDE RECORDS SUMMARY | 2025-03-09 14:36 | XMS_ITS | Encounter Summary ---
Author Organization [facility] Address [address] [place] [address] Care Team Providers Care Pipeline Integrity Engineer Name Role Phone Maggi Yeager DO Primary Care Provider [phone] Encounter Details Date Type Department Care Team ([facility] Contact Info) Description 04/16/2023 Case/Admissio n [facility] Orthopedics and Sports Medicine [address] [address] Carlos Garcia MD [address] [address] Primary osteoarthritis of right knee (Primary Dx) Social History Tobacco Use Types Packs/Day Years Used Date Smoking Tobacco: Never Smokeless Tobacco: Never Alcohol Use Standard Drinks/Week Comments Yes 2 [...] Description 03/13/2025 1:40 PM PST Office Visit [facility] Cardiology [address], [place] [address] Santino Gonzalez, PAShai [facility] [address] [place] [address] 05/17/2025 1:10 PM PST Office Visit [facility] Foot and Ankle [address], [place] [address] Jaden Mejia DPM [facility] [address] [place] [phone] 08/16/2025 11:00 AM PDT Office Visit [facility] Endocrinology [address] [place] [address] Be Walker DO [address] [place] [address] documented as of this encounter Visit Diagnoses Diagnosis Primary osteoarthritis of right knee- Primary Paroxysmal atrial fibrillation (CMS/HCC)- Primary Atrial fibrillation documented in this encounter Care Teams Pipeline Integrity Engineer Relationship Specialty Start Date End Date Shobha, DO Maggi [address] [address] PCP - General Family Medicine 09/20/24 documented as of this encounter
--- OUTSIDE RECORDS SUMMARY | 2025-03-09 14:36 | XMS_ITS | Encounter Summary ---
Author Organization [facility] Address [address] [place] [address] Care Team Providers Care Field Handyman Name Role Phone Maggi Yeager DO Primary Care Provider [phone] Encounter Details Date Type Department Care Team ([facility] Contact Info) Description 02/02/[address] [facility] Endocrinology [place] [address] [place] [address] Cleve Faye MD Age-related osteoporosis without current pathological fracture (Primary Dx) Social History Tobacco Use Types Packs/Day Years Used Date Smoking Tobacco: Never Alcohol Use Standard Drinks/Week Comments [...] Description 03/13/2025 1:40 PM PST Office Visit [facility] Cardiology [address], [place] [address] Santino Gonzalez, ALEKSANDRA [address] [address] [place] [address] 05/17/2025 1:10 PM PST Office Visit [facility] Foot and Ankle [address] [place] [address] Jaden Mejia DPM [facility] [address] [place] [phone] 08/16/2025 11:00 AM PDT Office Visit [facility] Endocrinology [address] [facility] [address] [place] [address] Be Walker DO 1400 [place], [place] [phone] documented as of this encounter Visit Diagnoses Diagnosis Age-related osteoporosis without current pathological fracture- Primary Paroxysmal atrial fibrillation (CMS/HCC)- Primary Atrial fibrillation documented in this encounter Care Teams Field Handyman Relationship Specialty Start Date End Date Maggi Yeager DO [facility] [address] [place] [address] PCP - General Family Medicine 09/20/24 documented as of this encounter
--- OUTSIDE RECORDS SUMMARY | 2025-03-09 14:36 | XMS_ITS | Encounter Summary ---
Author Organization [facility] Address [address] [place] [address] Care Team Providers Care Court Monitor Name Role Phone Maggi Yeager DO Primary Care Provider Encounter Details Date Type Department Care Team (Late st Contact Info) Description 04/17/[address] [facility] Cardiology [address], [address] [place] [address] Brooks Ireland PA [address] [place] [address], [facility] [place] [address] Social History Tobacco Use Types Packs/Day Years [...] Description 03/13/2025 1:40 PM PST Office Visit [facility] Cardiology [address], [facility] [place] [address] Santino Gonzalez PA-C [address] [place] [address] [place] [address] 05/17/2025 1:10 PM PST Office Visit [facility] Foot and Ankle [address], [place] [address] [facility] [address] [place] [address] 08/16/2025 11:00 AM PDT [facility] [address] [facility] [address] [place] [phone] Be Walker DO 1400 [place], [place] [phone] documented as of this encounter Visit Diagnoses Not on filedocumented in this encounter Care Teams Court Monitor Relationship Specialty Start Date End Date Maggi Yeager DO [address] [place] [address] PCP - General Family Medicine 09/20/24 documented as of this encounter
--- OUTSIDE RECORDS SUMMARY | 2025-03-09 14:36 | XMS_ITS | Encounter Summary ---
Author Organization [facility] Address [address] [place] [address] Care Team Providers Care Scrum Product Owner Name Role Phone Maggi Yeager DO Primary Care Provider [phone] Encounter Details Date Type Department Care Team (Late Contact Info) Description 09/04/[address] [facility] Orthopedics [id number] [place] [address] Niles Rodriguez MD Social History Tobacco Use Types Packs/Day Years Used Date Smoking Tobacco: Never Smokeless Tobacco: Never Tobacco Cessation:Counseling Given: Not Answered Alcohol Use Standard Drinks/Week Comments Yes 2 [...] 03/13/2025 1:40 PM PST Office Visit [facility] Cardiology [address], [place] [phone] Santino Gonzalez PA-C [address] [place] [address] [address] [place] [phone] 05/17/2025 1:10 PM PST Office Visit [facility] Foot and Ankle [address] [phone] Jaden Mejia DPM [facility] [address] [place], [place] [phone] 08/16/2025 11:00 AM PDT Office Visit [facility] [address] [facility] [address] [place] [address] Be Walker DO [address] [place], [place] [phone] documented as of this encounter Visit Diagnoses Not on filedocumented in this encounter Care Teams Scrum Product Owner Relationship Specialty Start Date End Date Maggi Yeager DO [address] [address] PCP - General Family Medicine 09/20/24 documented as of this encounter
--- OUTSIDE RECORDS SUMMARY | 2025-03-09 14:36 | XMS_ITS | Encounter Summary ---
Author Organization [facility] Address [address] [place] [address] Care Team Providers Care Technical Solutions Director Name Role Phone Maggi Yeager DO Primary Care Provider [phone] Reason for Visit * Reason Comments Med Refill Encounter Details Date Type Department Care Team (Late Contact Info) Description 10/18/2021 Refill [facility] [address], [place] [address] Brooks Ireland PA [address] [facility] [place] [address] Social History Tobacco Use Types [...] Description 03/13/2025 1:40 PM PST Office Visit [facility] [address], [facility] [place] [address] Santino Gonzalez PAJulianneC [address] [address] [place] [phone] 05/17/2025 1:10 PM PST Office Visit [facility] Foot and Ankle [address], [place] [address] Jaden Mejia DPM [facility] [address] [place] [phone] 08/16/2025 11:00 AM PDT Office Visit [facility] [address] [facility] [address] [place] [address] Be Walker DO [address] [place] [address] documented as of this encounter Visit Diagnoses Not on filedocumented in this encounter Care Teams Technical Solutions Director Relationship Specialty Start Date End Date Maggi Yeager DO [address] [address] PCP - General Family Medicine 09/20/24 documented as of this encounter
--- OUTSIDE RECORDS SUMMARY | 2025-03-09 14:37 | XMS_ITS | Encounter Summary ---
Author Organization [facility] Address [address] [place] [address] Care Team Providers Care Tour Agent Name Role Phone Maggi Yeager Primary Care Provider [phone] Encounter Details Date Type Department Care Team (Late Contact Info) Description 04/30/2024 Orders Only [facility] Endocrinology [address] [facility] [address] [place] [address] Be Walker DO [address] [place] [address] Osteoporosis, unspecified osteoporosis type, unspecified pathological fracture presence; Thyroid nodule Social History Tobacco Use Types Packs/Day Years [...] Description 03/13/2025 1:40 PM PST Office Visit [facility] Cardiology [address], [place] [phone] Santino Gonzalez PA-C [address] [address] [place] [address] 05/17/2025 1:10 PM PST Office Visit [facility] Foot and Ankle [address] [phone] Jaden Mejia DPM [facility] [address] [facility] [address] [place], [place] [phone] 08/16/2025 11:00 AM PDT Office Visit [facility] Endocrinology [address] [facility] [address] [place] [address] Be Walker DO [address] [place] [address] documented as of this encounter Procedures Procedure Name Priority Date/Time Associated Diagnosis Comments RENAL FUNCTION PANEL Routine 04/27/2024 Osteoporosis, unspecified osteoporosis type, unspecified pathological fracture presence Thyroid nodule documented in this encounter Results * Renal function panel (04/27/2024) Blood Venous blood / Unknown Be Walker DO LAB BLOOD ORDERABLES Final Result documented in this encounter Visit Diagnoses Diagnosis Osteoporosis, unspecified osteoporosis type, unspecified pathological fracture presence Thyroid nodule Nontoxic uninodular goiter Paroxysmal atrial fibrillation (CMS/HCC)- Primary Atrial fibrillation documented in this encounter Care Teams Tour Agent Relationship Specialty Start Date End Date Shobha, DO Maggi [address] [facility] [address] [place] [address] PCP - General Family Medicine 09/20/24 documented as of this encounter
--- OUTSIDE RECORDS SUMMARY | 2025-03-09 14:37 | XMS_ITS | Encounter Summary ---
Author Organization [facility] Address [address] [place] [address] Care Team Providers Care Facility Maintenance Mechanic Name Role Phone Maggi Yeager DO Primary Care Provider [phone] Reason for Visit * Reason Comments Med Refill Encounter Details Date Type Department Care Team (Late Contact Info) Description 03/18/2021 Refill [facility] G[facility] [place] [address] [place] [address] Serge Larsen MD [address] [address] Social History Tobacco Use Types Packs/Day Years [...] Description 03/13/2025 1:40 PM PST Office Visit [facility] Cardiology [address], [place] [address] Santino Gonzalez PA-C [address] [place] [address] [address] [place] [address] 05/17/2025 1:10 PM PST Office Visit [facility] Center Foot and Ankle [address] [address] Jaden Mejia DPM [facility] [address] [place] [phone] 08/16/2025 11:00 AM PDT Office Visit [facility] Endocrinology [address] [facility] [address] [place] [address] Be Walker DO 1400 [place] [address] documented as of this encounter Visit Diagnoses Not on filedocumented in this encounter Care Teams Facility Maintenance Mechanic Relationship Specialty Start Date End Date Maggi Yeager DO [address] [address] PCP - General Family Medicine 09/20/24 documented as of this encounter
--- OUTSIDE RECORDS SUMMARY | 2025-03-09 14:37 | XMS_ITS | Encounter Summary ---
Author Organization [facility] Address [facility] [address] [address] Care Team Providers Care Instrument Repair Technician Name Role Phone Jossy Mac Jose DO Primary Care Provider [phone] Liz Boss NP Unavailable [phone] Primary Care Provider Nikia Sinclair MD Primary Care Provider WeeksMaggi DO Primary Care Provider [phone] Reason for Visit * Reason Comments Medication Refill Encounter Details Date Type Department Care Team (Late st Contact Info) Description 04/01/2020 Refill ENDOCRINOLOGY - [place] [address] [place] [phone] Serge Roy MD HIM Unable to Validate Social History Tobacco Use Types Packs/Day Years Used Date Smoking Tobacco: Never Smokeless Tobacco: Never Comments:exposed to secondha nd smoke from father Alcohol Use Standard Drinks/Week Comments Yes 0 [...] on filedocumented in this encounter Care Teams Instrument Repair Technician Relationship Specialty Start Date End Date Jossy Mac DO [address] [place], [place] [phone] PCP - General Family Medicine 07/11/15 09/16/20 Grant Gutierrez ARNP [address] [place] [phone] PCP - General Nurse Practitioner 09/17/20 12/15/21 Nikia Sinclair MD [address] [place] [id number] PCP - General Internal Medicine 12/16/21 05/17/23 Maggi Yeager DO [address] [place] [id number] PCP - General 05/18/23 Liz Boss NP [address] [place] [address] Nurse Practitioner Nurse Practitioner 07/25/15 documented as of this encounter
--- OUTSIDE RECORDS SUMMARY | 2025-03-09 14:37 | XMS_ITS | Encounter Summary ---
Author Organization [facility] Address [address] [place] [address] Care Team Providers Care Statement Clerks Supervisor Name Role Phone Maggi Yeager DO Primary Care Provider [phone] Encounter Details Date Type Department Care Team (Late st Contact Info) Description 03/17/2019 Refill [facility] Cardiology [address], [address] [place] [address] Anirudh Hampton MD [address] [place] [address] [place] [phone] Social History Tobacco Use Types Packs/Day Years [...] on file documented as of this encounter Miscellaneous Notes * Telephone Encounter - Bhavna Quinones RN - 03/17/2019 1:07 PM PST Creatinine level has been performed within current year and is under Media tab documented in this encounter Plan of Treatment Upcoming Encounters Date Type Department Care Team (Late st Contact Info) Description 03/13/2025 1:40 PM PST Office Visit [facility] Cardiology [address], [place] [phone] Santino Gonzalez, ALEKSANDRA [facility] [address] [place] [address] 05/17/2025 1:10 PM PST Office Visit [facility] Foot and Ankle [address] [address] Jaden Mejia DPM [facility] [address] [place] [address] [place] [address] 08/16/2025 11:00 AM PDT Office Visit [facility] Endocrinology [address] [facility] [address] [place] [address] Be Walker DO 1400 [place], [place] [phone] documented as of this encounter Visit Diagnoses Not on filedocumented in this encounter Care Teams Statement Clerks Supervisor Relationship Specialty Start Date End Date Maggi Yeager DO 12[address] 100 [place], [place] [phone] PCP - General Family Medicine 09/20/24 documented as of this encounter
--- OUTSIDE RECORDS SUMMARY | 2025-03-09 14:37 | XMS_ITS | Clinical Summary ---
Author Organization [facility] Address [facility] [address] [address] Care Team Providers Care Gallery Or Museum Attendant Name Role Phone Liz Boss CLOTH FINISHING RANGE TENDER Unavailable [phone] Weeks, Maggi BADILLO Primary Care Provider [phone] Allergies Active Allergy Reactions Criticality Noted Date Comments Codeine Nausea And Vomiting,Nausea Only Medium 04/03/2014 Other reaction(s): Nausea Duloxetine Hcl Low 02/19/2021 Other Reaction(s): Other Other reaction(s): Adverse Drug Reaction Mirtazapine Low 02/19/2021 Other Reaction(s): Other Other reaction(s): Adverse Drug Reaction Medications vitamin B complex-vitamin C-folic acid (NEPHROCAPS) 1 mg per capsule Take 1 capsule by mouth daily Active ytedj-6d-tsy-epa-fi sh oil 350-400 mg Capsule Take 1 capsule by mouth daily Active amLODIPine (NORVASC) 10 MG tablet Take 10 mg by mouth daily Active PATADAY 0.2 % Drops as needed 4 6 Active metoprolol succinate (TOPROL-XL) 25 MG 24 hr tablet Take 12.5 mg by mouth daily Active apixaban (ELIQUIS) 5 mg tablet Take 5 mg by mouth Twice a day Active traZODone (DESYREL) 100 MG tablet Take 100 mg by mouth nightly Active omeprazole (PRILOSEC) 20 MG capsule Take 20 mg by mouth daily 2 Active latanoprost (XALATAN) 0.005 % ophthalmic solution INSTILL 1 DROP IN BOTH EYES AT BEDTIME 2 Active vitamin E, dl,tocopheryl acet, (VITAMIN E, DL, ACETATE,) 100 unit Capsule Take by mouth 0 Active cycloSPORINE (RESTASIS) 0.05 % ophthalmic emulsion Put 1 drop in both eyes 2 times daily. 2 Active timolol (TIMOPTIC) 0.5 % ophthalmic solution INSTILL 1 DROP IN BOTH EYES TWICE DAILY DIRECTED 2 Active calcium citrate-vitamin D3 315 mg-6.25 mcg (250 unit) tablet Take 1 tablet by mouth Twice a day Active multivitamin (THERAGRAN) per tablet Take 1 tablet by mouth daily Active AMSXWW-HJEJPUEH-ACT C-E-HERBAL ORAL Take by mouth Active VITAMIN D3-VIT K1-VIT MK4-MK7 ORAL Take by mouth Active estradioL (ESTRACE) 0.01 % (0.1 mg/gram) vaginal cream 3 Active ciclopirox (PENLAC) 8 % solution 4 Active finasteride (PROSCAR) 5 mg tablet 4 Active levothyroxine 125 MCG tabletIndications:A cquired hypothyroidism Take 1 tablet (125 mcg total) by mouth daily 90 tablet 3 4 Active liothyronine (CYTOMEL) 5 MCG tabletIndications:T hyroid nodule,Acquired hypothyroidism TAKE 1 TABLET(5 MCG) BY MOUTH DAILY 90 tablet 3 4 Active teriparatide (FORTEO) 20 mcg/dose (600mcg/2.4mL) injection penIndications:Oste oporosis, unspecified osteoporosis type, unspecified pathological fracture presence Inject 20 mcg into the skin daily 7.2 mL 3 4 Active Active Problems Problem Noted Date Diagnosed Date 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 Could recheck CT in 09/2016. Dyspnea on exertion 07/25/2015 Diaphragmatic hernia Pulmonary infiltrate in right lung on CXR Overview (07/24/2015): Meera Hypertension Hypothyroid Thyroid nodule Osteoarthritis Pneumonia Goiter, nontoxic, multinodular Encounters Date Type Department Care Team Description 02/15/2025 Telephone ENDOCRINOLOGY - [place], [place] [address] [place] [address] Neil Escobar Appointment from Last 3 Months Immunizations Immunization Administration Dates Next Due COVID-19 (Unspecified) 02/11/2021,06/11/2020, Diphtheria Antitoxin 08/21/1997 Influenza trivalent (PF) (3 years and up) 01/17/2021,12/20/2020,02/03/2018,2016,02/19/2016,01/29/2016 Influenza trivalent HIGH-DOS E (PF) (65 years and up) 01/30/2022,02/07/2019,01/13/2017 Influenza trivalent adjuvant ed (PF) (65 years and up) 01/23/2015 Influenza trivalent with pre servative (6 months and up) 01/17/2021,12/20/2020,02/03/2020,2018,02/03/2018,01/13/2017,02/19/2016,1 ,01/23/2015,01/23/2015, 015 Moderna SARS-CoV-2 BIVALENT Vaccination 01/30/2022 Moderna SARS-CoV-2 Booster Vaccination 08/25/2021 Moderna SARS-CoV-2 Vaccination 2,02/11/2021,06/11/2020,2020 PneumoPPV 02/11/2021, 3,01/23/2013,2012 Pneumococcal Conjugate 13-Valent 06/22/2018,08/17 Td (PF) 2 Lf 08/21/1997 Td (PF) 5 Lf 08/21/1997 Tdap 07/18/2018,07/23/2015,07/23/2015 Zoster 09/25/2011,09/25/2011 Zoster Vaccine Recombinant, Adjuvanted 12/08/2017,09/02/2017 Family History Medical History Relation Comments Alcohol abuse Father Arthritis Father Cancer - Other Father Early Father Emphysema Father Lung cancer Father Heart disease / problems Maternal Aunt Heart disease / problems Maternal Uncle Arthritis Mother Depression Mother Heart disease / problems Mother Hypertension (High blood pressure) Mother Migraines Mother Hypertension (High blood pressure) Sister Relation Status Comments Father Maternal Aunt Maternal Uncle Mother Sister Social History Tobacco Use Types Packs/Day Years Used Date Smoking Tobacco: Never Smokeless Tobacco: Never Tobacco Cessation:Counseling Given: Not Answered Comments:exposed to secondhand smoke from father Alcohol Use Standard Drinks/Week [...] file Not on file Not on file Last Filed Vital Signs Vital Sign Reading Time Taken Comments Blood Pressure 142/76 12/14/2023 10:40 AM PDT Pulse 60 12/14/2023 10:40 AM PDT Temperature - - Respiratory Rate 16 02/12/2021 8:38 AM PDT Oxygen Saturation 98% 12/14/2023 10: 40 AM PDT Inhaled Oxygen Concentration - - Weight 84.3 kg (185 lb 12.8 oz) 024 10:40 AM PDT Height 172.7 cm (5' 8) 12/14/2023 10:4 0 AM PDT Body Mass Index 28.25 12/14/2023 10:40 AM PDT Plan of Treatment Health Maintenance Due Date Last Done Comments Disability Screening 1945 Hepatitis C Screening 1945 Basic Metabolic Panel 1964 RSV Vaccines (1 - 1-dose 75+ series) 2021 Medicare Initial Annual Well ness Visit [id number] 04/19/2021 Drug, Alcohol, and Depressio n Screening 04/19/2024 SOGIE 04/19/2024 Covid-19 Vaccine ( season) 2024 01/30/2022, 08/25/2021, 08/25/2021, Additional history exists Influenza Vaccine (#1) 2024 2, 01/17/2021, 01/17/2021, Additional history exists TSH Level 01/09/2025 01/10/2024, 12/27/2017 DTaP/Tdap/Td Vaccine (4 - Td or Tdap) 07/18/2028 07/18/2018, 07/23/2015, 07/23/2015, Additional history exists Osteoporosis Screening 11/21/2033 4, 11/26/2022, 09/19/2021, Additional history exists Zoster Completed 12/08/2017, 08/17, 09/25/2011, Additional history exists Pneumococcal 50+ Years Completed 1, 06/22/2018, 09/02/2017, Additional history exists Procedures Procedure Name Priority Date/Time Associated Diagnosis Comments TSH EXTERNAL ENTRY Routine 01/10/2024 from Last 3 Months or Most Recently Relevant to Health Maintenance Results * TSH External Entry (01/10/2024) TSH 1.160 uIU/mL Blood 01/10/2024 Ph Historical Provider LAB BLOOD ORDERABLES Susan l Result from Last 3 Months or Most Recently Relevant to Health Maintenance Insurance [facility] Care Teams Gallery Or Museum Attendant Relationship Specialty Start Date End Date Shobha, MaggiDO [address] [address] PCP - General 05/18/23 Liz Boss NP Nurse Practitioner Nurse Practitioner 07/25/15
--- OUTSIDE RECORDS SUMMARY | 2025-03-09 14:37 | XMS_ITS | Encounter Summary ---
Author Organization [facility] Address [address] [address] Care Team Providers Care Ornamental Plaster Sticker Name Role Phone GeraLiz IMPORT AND EXPORT CLERK Unavailable [phone] Grant Gutierrez Primary Care Provider Nikia Sinclair MD Primary Care Provider Maggi Yeager DO Primary Care Provider Encounter Details Date Type Department Care Team (Late st Contact Info) Description 01/15/2021 Scanned Document SCANNED ONLY Scanned, Document Social [...] on filedocumented in this encounter Care Teams Ornamental Plaster Sticker Relationship Specialty Start Date End Date Grant Gutierrez ARNP [address] [address] [place] [address] PCP - General Nurse Practitioner 6/1/21 8/29/22 Nikia Sinclair MD [address] [place] [id number] PCP - General Internal Medicine 12/16/21 05/17/23 Maggi Yeager DO [address] [place] [phone] PCP - General 05/18/23 Liz Boss NP Nurse Practitioner Nurse Practitioner 07/25/15 documented as of this encounter
--- OUTSIDE RECORDS SUMMARY | 2025-03-09 14:37 | XMS_ITS | Encounter Summary ---
Author Organization [facility] Address [address] [place] [address] Care Team Providers Care Legal Archivist Name Role Phone ShobhaMaggi Primary Care Provider [phone] Encounter Details Date Type Department Care Team (Late st Contact Info) Description 01/20/2024 Case/Admission [facility] Orthopedics and Sports Medicine [address] [address] Marty Lowe DO [address] [address] Social History Tobacco Use Types [...] documented as of this encounter Functional Status * Question Answer Date of Assessment Author History of Falling 0 01/21/2024 8:00 AM PDT Radha Cheng Secondary Diagnosis 15 01/21/2024 8:00 AM PD T Radha Cheng Ambulatory Aids 15 01/21/2024 8:00 AM PDT Bu rkRadha prasad Intravenous Therapy/Heparin/Saline Lock 20 1 8:00 AM PDT Radha Cheng Gait/Transferring 10 01/21/2024 8:00 AM PDT Prosper Radha Mental Status 0 01/21/2024 8:00 AM PDT Brandy osmarLeonilaRadha Regalado Fall Risk Score 60 01/21/2024 8:00 AM PDT Prosper Radha * Question Answer Date of Assessment Author Sensory Perceptions 4 01/21/2024 7:29 AM PD T Prosper Radha Moisture 3 01/21/2024 7:29 AM PDT Cheng , Radha Activity 3 01/21/2024 7:29 AM PDT Cheng , Radha Mobility 3 01/21/2024 7:29 AM PDT Cheng , Radha Nutrition 3 01/21/2024 7:29 AM PDT Cheng , Radha Friction and Shear 3 01/21/2024 7:29 AM PDT Radha Cheng Ernesto Scale Score 19 01/21/2024 7:29 AM PDT Radha Cheng * Modified [place] Question Answer Date of Assessment Author Activity 2 01/20/2024 10:45 AM PDT Khadijah Rivas RN Respiration 2 01/20/2024 10:45 AM PDT Khadijah Rivas RN Circulation 1 01/20/2024 10:45 AM PDT Khadijah Rivas RN Consciousness 1 01/20/2024 10:45 AM PDT Khadijah Martinez RN Oxygen Saturation 2 01/20/2024 10:45 AM PDT Khadijah Alcaraz RN Modified Chelsea Score 8 01/20/2024 10:45 A M PDT Khadijah Alcaraz RN documented as of this encounter Mental Status * Belem Coma Scale Question Answer Entry Date Author Eye Opening 4 01/21/2024 7:29 AM PDT Radha Cheng Best Motor Response 6 01/21/2024 7:29 AM PD T Radha Cheng Best Verbal Response 5 01/21/2024 7:29 AM P DT Radha Cheng Belem Coma Scale Score 15 01/21/2024 7:29 AM PDT Prosper Radha * Question Answer Entry Date Author Orientation Level Oriented X4 01/21/2024 9:42 AM PDT [place], Valdiv[place], OTR/L * Question Answer Entry Date Author Level of Consciousness Drowsy 01/21/2024 7:29 AM PDT Radha Cheng Cognition Follows commands 01/21/2024 7:29 AM PDT B Radha harmon documented in this encounter Plan of Treatment Upcoming Encounters Date Type Department Care Team (Late st Contact Info) Description 03/13/2025 1:40 PM PST Office Visit [facility] Cardiology [address], [place] [phone] Santino Gonzalez, PAShai [address] [place] [address] 05/17/2025 1:10 PM PST Office Visit [facility] Foot and Ankle [address] [facility] [address] [address] Jaden Mejia DPM [facility] Wound Care Center [address] [place] [address] 08/16/2025 11:00 AM PDT Office Visit [facility] Endocrinology [address] [facility] [address] [place] [address] Be Walker DO 1400 [place], [place] [phone] documented as of this encounter Visit Diagnoses Not on filedocumented in this encounter Care Teams Legal Archivist Relationship Specialty Start Date End Date Maggi Yeager DO [address] [place], [place] [phone] PCP - General Family Medicine 09/20/24 documented as of this encounter
--- OUTSIDE RECORDS SUMMARY | 2025-03-09 14:37 | XMS_ITS | Encounter Summary ---
Author Organization [facility] Address [address] [place] [address] Care Team Providers Care Loop Drier Operator Name Role Phone Maggi Yeager DO Primary Care Provider [phone] Encounter Details Date Type Department Care Team (Late st Contact Info) Description 12/26/2021 Abstract [facility] [address], [place] [address] Brooks Ireland PA [address] [facility] [place] [address] Social History Tobacco Use Types [...] Description 03/13/2025 1:40 PM PST Office Visit [facility] [place] [id number] [facility] [place] [address] Santino Gonzalez PAShai [address] [place] [phone] 05/17/2025 1:10 PM PST Office Visit [facility] Foot [facility]le [address] [address] Jaden Mejia DPM [facility] [address] [place] [phone] 08/16/2025 11:00 AM PDT Office Visit [facility] [address] [facility] [address] [place] [address] Be Walker DO [address] [place] [address] documented as of this encounter Visit Diagnoses Not on filedocumented in this encounter Care Teams Loop Drier Operator Relationship Specialty Start Date End Date Maggi Yeager DO [address] [address] PCP - General Family Medicine 09/20/24 documented as of this encounter
--- OUTSIDE RECORDS SUMMARY | 2025-03-09 14:37 | XMS_ITS | Encounter Summary ---
Author Organization [facility] Address [address] [address] Care Team Providers Care Ham Trimmer Name Role Phone Jossy Mac DO Primary Care Provider [phone] Liz Boss NP Unavailable [phone] Grant Gutierrez Primary Care Provider Nikia Sinclair MD Primary Care Provider Maggi Yeager DO Primary Care Provider Reason for Referral * Specialty Services (Routine) - Closed Specialty Diagnoses / Procedures Referred By Aliya chen Referred To Contact Endocrinology Diagnoses Multiple thyroid nodules Procedures AK OFFICE/OUTPT VISIT,EST,LEVL IV Nikia Sinclair MD [address] [address] Phone: tel: fax: Serge Roy MD Referral ID Status Reason Start Date Expiration Date Visits Re quested Visits Authorized [id number] Closed 07/24/2015 07/23/2016 99 99 Encounter Details Date Type Department Care Team (Latest Contact Info) Description 07/24/2015 Order Microstrategy Architect Developer ENDOCRINOLOGY - [place], [place] [address] [place] [id number] Nikia Sinclair MD [address] [facility] [place] [address] Multiple thyroid nodules (Primary Dx) Social History Tobacco Use Types Packs/Day Years Used Date Smoking Tobacco: Never Assessed Comments Unknown Sex and Gender Information Value Date Recorded Sex Assigned at Female 12/10/2023 9:29 PM PDT Legal Sex Female 9:04 AM PDT Gender Identity Female 12/10/2023 9:29 PM PDT Sexual Orientation Not on file documented as of this encounter Plan of Treatment Scheduled Referrals Name Type Priority Associated Diagnoses Order Schedule * Internal - (Endocrinology) [facility] Endocrinology - [place] Outpatient Referral Routine Multiple thyroid nodules Ordered: 07/24/2015 documented as of this encounter Visit Diagnoses Diagnosis Multiple thyroid nodules- Primary Nontoxic multinodular goiter documented in this encounter Care Teams Ham Trimmer Relationship Specialty Start Date End Date Jossy Mac DO [address] [place] [address] PCP - General Family Medicine 07/11/15 09/16/20 Grant Gutierrez ARNP [address] [address] PCP - General Nurse Practitioner 09/17/20 12/15/21 Nikia Sinclair MD [address] [address] PCP - General Internal Medicine 12/16/21 05/17/23 Maggi Yeager DO [address] [address] PCP - General 05/18/23 Liz Boss NP [address] [place] [address] Nurse Practitioner Nurse Practitioner 07/25/15 documented as of this encounter
--- OUTSIDE RECORDS SUMMARY | 2025-03-09 14:37 | XMS_ITS | Encounter Summary ---
Author Organization [facility] Address [address] [place] [address] Care Team Providers Care Job Interviewer Name Role Phone Maggi Yeager DO Primary Care Provider [phone] Reason for Visit * Reason Comments Med Refill Encounter Details Date Type Department Care Team (Late Contact Info) Description 10/07/2023 Refill [facility] Cardiology [address], [address] [place] [address] Anirudh Hamptno MD [address] [place] [address] [place] [address] Social History Tobacco Use Types Packs/Day [...] PM PST Office Visit [facility] Cardiology [address], [place] [address] Santino Gonzalez PA-C [address] [place] [address] [address] [place] [address] 05/17/2025 1:10 PM PST Office Visit [facility] Foot and Ankle [address] [address] Jaden Mejia DPM [facility] [address] [place] [phone] 08/16/2025 11:00 AM PDT Office Visit [facility] [place] End[facility]ology [address] [facility] [address] [place] [address] Be Walker DO [address] [place] [address] documented as of this encounter Visit Diagnoses Not on filedocumented in this encounter Care Teams Job Interviewer Relationship Specialty Start Date End Date Maggi Yeager DO [address] [address] PCP - General Family Medicine 09/20/24 documented as of this encounter
--- OUTSIDE RECORDS SUMMARY | 2025-03-09 14:37 | XMS_ITS | Encounter Summary ---
Author Organization [facility] Address [address] [place] [address] Care Team Providers Care Brim Welt Sewing Machine Operator Name Role Phone Maggi Yeager DO Primary Care Provider [phone] Encounter Details Date Type Department Care Team ([facility] Contact Info) Description 12/08/2021 Orders Only [facility] Rheumatology [address] [address] Cullen Valenzuela, MICHOACANO Social History Tobacco Use Types Packs/Day Years [...] Description 03/13/2025 1:40 PM PST Office Visit [facility] Cardiology [address] [place] [phone] Santino Gonzalez PA-C [address] [place] [address] [address] [place] [phone] 05/17/2025 1:10 PM PST Office Visit [facility] Foot and Ankle [address] [place] [phone] [facility] [address] [place], [place] [phone] 08/16/2025 11:00 AM PDT Office Visit [facility] Endocrinology [address] [facility] [address] [place] [address] Be Walker DO [address] [place], [place] [phone] documented as of this encounter Visit Diagnoses Not on filedocumented in this encounter Care Teams Brim Welt Sewing Machine Operator Relationship Specialty Start Date End Date Maggi Yeager DO [address] [address] PCP - General Family Medicine 09/20/24 documented as of this encounter
--- OUTSIDE RECORDS SUMMARY | 2025-03-09 14:37 | XMS_ITS | Encounter Summary ---
Author Organization [facility] Address [address] [address] Care Team Providers Care Distance Learning Coordinator Name Role Phone GeraLiz DRY CHAIN PULLER Unavailable [phone] Grant Gutierrez Primary Care Provider Nikia Sinclair MD Primary Care Provider Maggi Yeager DO Primary Care Provider Encounter Details Date Type Department Care Team (Late st Contact Info) Description 10/15/2020 Scanned Document SCANNED ONLY Scanned, Document Social [...] on filedocumented in this encounter Care Teams Distance Learning Coordinator Relationship Specialty Start Date End Date Grant Gutierrez ARNP [address] [address] [place] [address] PCP - General Nurse Practitioner 6/1/21 8/29/22 Nikia Sinclair MD [address] [place] [phone] PCP - General Internal Medicine 12/16/21 05/17/23 Maggi Yeager DO [address] [place] [phone] PCP - General 05/18/23 Liz Boss NP Nurse Practitioner Nurse Practitioner 07/25/15 documented as of this encounter
--- OUTSIDE RECORDS SUMMARY | 2025-03-09 14:37 | XMS_ITS | Clinical Summary ---
Author Organization [facility] Address [address] [place] [address] Care Team Providers Care Assistant Foreman Name Role Phone Maggi eYager DO Primary Care Provider [phone] Allergies Active Allergy Reactions Criticality Noted Date Comments Codeine Nausea And Vomiting Medium 04/03/2014 Other reaction(s): Nausea Other reaction(s): Nausea Other reaction(s): Nausea Other reaction(s): Nausea Other reaction(s): Nausea Duloxetine Hcl Low 02/19/2021 Other reaction(s): Adverse Drug Reaction Other Reaction(s): Other Mirtazapine Other (see comments) Low 02/19/2021 Other reaction(s): Adverse Drug Reaction Medications omega 2-itk-mgq-fish oil 100-160-1,000 mg capsule daily 04/07/20 10 Active olopatadine (PATADAY) 0.2 % ophthalmic solution as needed 09/20/19 16 Active B complex with C#20-folic acid 1 mg capsule Take 1 capsule by mouth. Active traZODone (DESYREL) 100 mg tablet Take 1 tablet (100 mg total) by mouth nightly 02/26/20 21 Active cholecalciferol, vitamin D3, 25 mcg (1,000 unit) capsule Take 1,000 Units by mouth Active amLODIPine (NORVASC) 5 mg tablet Take 1 tablet (5 mg total) by mouth daily 09/04/19 22 Active latanoprost (XALATAN) 0.005 % ophthalmic solution 1 drop nightly 12/12/19 22 Active CALCIUM CITRATE-VITAMIN D3 ORAL Take 2 tablets by mouth daily Active UNABLE TO FIND Med Name: Ivizia eye drops - for severe dry eye Active timolol (TIMOPTIC) 0.5 % ophthalmic solution Administer 1 drop into both eyes 02/18/20 Active cycloSPORINE (RESTASIS) 0.05 % ophthalmic emulsion INSTILL 1 DROP IN BOTH EYES TWICE DAILY DIRECTED 02/18/20 Active omeprazole (PriLOSEC) 20 mg capsule Take 1 capsule (20 mg total) by mouth daily 90 capsule 11 07/27/19 Active metoprolol succinate XL (TOPROL-XL) 25 mg 24 hr tablet TAKE 1 TABLET(25 MG) BY MOUTH DAILY 90 tablet 3 09/20/19 24 Active propylene glycol/peg 400/PF (SYSTANE, PF, OPHT) Administer into affected eye(s) Active progesterone (PROMETRIUM) 200 mg capsule Take 1 capsule (200 mg total) by mouth daily 02/14/20 Active Tyrvaya 0.03 mg/spray spray, metered, non-aerosol 02/11/20 Active apixaban (Eliquis) 5 mg tablet TAKE 1 TABLET(5 MG) BY MOUTH TWICE DAILY 180 tablet 3 10/25/19 25 Active Lumigan 0.01 % ophthalmic drops ADMINISTER 1 DROP AFFECTED EYE ONCE A DAY 10/06/19 25 Active neomycin-polymyx in-dexamethasone (MAXITROL) 3.5mg/mL-10,000 unit/mL-0.1 % ophthalmic suspension 09/11/19 25 Active levothyroxine (SYNTHROID) 112 mcg tabletIndication s:Osteoporosis, unspecified osteoporosis type, unspecified pathological fracture presence Take 1 tablet (112 mcg total) by mouth daily 90 tablet 3 11/15/19 25 026 Active liothyronine (CYTOMEL) 5 mcg tabletIndication s:Thyroid nodule Take 1 tablet (5 mcg total) by mouth daily 6 days a week- 90 tablet 11/15/19 25 Active estradioL (VIVELLE-DOT) 0.0375 mg/24 hr APPLY 1 PATCH TRANSDERMALLY TWICE A WEEK 12/08/19 25 Active Active Problems Problem Noted Date Diagnosed Date Right knee pain 09/27/2023 Montanez's esophagus without dysplasia 06/03/2023 Hx of colonic polyp 06/03/2023 Primary osteoarthritis of right knee 09/08/2022 Acute pain of right knee 09/08/2022 Dyspnea on exertion 12/26/2021 Complex tear of medial menis cus of right knee as current injury 04/17/2020 Overview (04/17/2020): Added automatically from request for surgery [id number] Osteoporosis 04/15/2018 Paroxysmal atrial fibrillation 08/05/2017 Encounter for monitoring flecainide therapy 07/18 Acquired hypothyroidism 11/05/2016 Thyroid nodule 11/05/2016 Cervical radiculopathy 02/05/2014 Paresthesia 02/05/2014 Resolved Problems Problem Noted Date Diagnosed Date Resolved Date Senile osteoporosis 11/05/2016 04/15/20 18 Persistent atrial fibrillation 06/22/2016 08/05/2017 Encounters Date Type Department Care Team Description 03/05/2025 Telephone [facility] Endocrinology [facility] [place] [address] Be Walker, DO Medical Question 02/14/2025 1:10 PM PDT Office Visit [facility] [address] [place] [phone] Jaden Mejia DPM Onychodystrophy (Primary Dx) 02/12/2025 10:20 AM PDT Office Visit [facility]ics [facility] Medicine [address] [place] [phone] Robin Burr, S/P total knee replacement, right (Primary Dx) 01/02/2025 Telephone [facility] [address] [place] [phone] Jaden Mejia DPM Wait List 01/01/2025 8:10 AM PDT Office Visit [facility] [address] [place] [phone] Robin Burr DO S/P total knee replacement, right (Primary Dx); Patellofemoral pain syndrome of right knee 01/01/2025 7:32 AM PDT - 01/01/2025 11:59 PM PDT Hospital Encounter [facility] [address] [place] [address] Robin Burr, DO S/P total knee replacement, right Discharge Disposition: Home/Self Care 12/19/2024 Results Follow-Up [facility] Endocrinology [address] [place] [address] Be Walker DO Vitamin D, 25-Hydroxy, Renal function panel, Ca+PTH Intact, Thyroid stimulating hormone and free T4 from Last 3 Months Immunizations Immunization Administration Dates Next Due DTaP, Unspecified 08/21/1997 FLU High Dose 65+ Trivalent, PF (FLUZONE) 02/07/2019,01/13/2017 FLU PF 6+Mos Trivalent 0.5ML (Fluzone, FluLaval, Fluarix) 01/17/2021,12/20/2020,02/03/2018,01/13,02/19/2016,01/29/2016 Influenza Trivalent, Adjuvan charlie, Preservative Free 01/23/2015 Influenza, Seasonal, Injectable 02/03/20 20,02/17/2019,01/13/2017,02/18,01/29/2016,01/23/2015,01/01/2015 Influenza, Unspecified 01/29/2016,12/13/2014 Live Zoster (Zostavax) 09/25/2011 Moderna Covid Vaccine Monovalent 08/25/2021,01/18 Pneumococcal Conjugate PCV13 (Yfqraun03) 06/22/2018,09/02/2017 Pneumococcal Polysaccharide PPV23 (Nathlxyaj18) 02/11/2021,01/23/2013,07/18/2012 Recombinant Zoster (Shingrix) 12/08/2017, 018 TD Preservative Free (Generic) 08/21/1997 TD Preservative Free (Tenivac) 08/21/1997 Td 08/21/1997 Td, Unspecified 07/23/2015 Tdap (Boostrix,Adacel) 07/18/2018,07/23/2015 Family History Medical History Relation Comments Cancer Father Unknown Arthritis Maternal Grandmother Arthritis Mother Colon polyps Mother Heart disease Mother Hyperlipidemia Mother Anxiety disorder Sister Colon polyps Sister Relation Status Comments Father Alive Maternal Grandmother Mother Alive Paternal Grandmother (Age 91) Sister Alive Social History Tobacco Use Types Packs/Day Years [...] PM PST Sexual Orientation Not on file Last Filed Vital Signs Vital Sign Reading Time Taken Comments Blood Pressure 127/79 02/14/2025 12:53 PM PDT Pulse 50 02/14/2025 12:53 PM PDT Temperature 36.7 C (98.1 F) 01/21/2024 8:45 AM PDT Respiratory Rate 18 01/21/2024 8:45 AM PDT Oxygen Saturation 98% 02/14/2025 12: 53 PM PDT Inhaled Oxygen Concentration - - Weight 83.9 kg (184 lb 15.5 oz) 025 12:53 PM PDT Height 170.2 cm (5' 7.01) 02/14/2025 1 2:53 PM PDT Body Mass Index 28.96 02/14/2025 12:53 PM PDT Plan of Treatment Upcoming Encounters Date Type Department Care Team (Late st Contact Info) Description 03/13/2025 1:40 PM PST Office Visit [facility] Cardiology [address], [place] [phone] Santino Gonzalez PA-C [address] [place] [address] [address] [place] [phone] 05/17/2025 1:10 PM PST Office Visit - [facility] [address] [phone] Jaden Mejia DPM [facility] [address] [place] [phone] 08/16/2025 11:00 AM PDT Office Visit [facility] [address] [facility] [address] [place] [address] Be Walker, DO [address] [place] [phone] Health Maintenance Due Date Last Done Comments Medicare Annual Wellness (AWV) 1945 Depression Screening (PHQ-2) 1958 Fall Risk Screening 2011 RSV Patients Over 60 years OR qualifying ( Patients) (1 - 1-dose 75+ series) 2021 COVID-19 Vaccine (8 - Mixed Product risk season) 2025 02/02/2025, 12/27/2023, 08/16/2023, Additional history exists DTaP,Tdap,and Td Vaccines (6 - Td or Tdap) 07/18/2028 07/18/2018, 07/23/2015, 07/23/2015, Additional history exists Colorectal Cancer Screening (Colonoscopy) Discontinued 03/25/2010 Colorectal Cancer Screening Combined Discontinued Varicella Vaccines Discontinued 09/25/2011 Zoster Vaccines Completed 12/08/2017, 08/17, 09/25/2011 HM Pneumococcal Adult 50+ Completed 2020, 06/22/2018, 09/02/2017, Additional history exists HM Pneumococcal Combined Age 0-49 Discontinued 02/11/2021, 06/22/2018, 09/02/2017, Additional history exists Breast Cancer Screening Discontinued 03/01/2023 Influenza Vaccine Completed 02/02/2025, , 12/24/2022, Additional history exists Colorectal Cancer Screening (FOBT) Discontinued Colorectal Cancer Screening (Fecal DNA) Discontinued HPV Vaccines Aged Out No longer eligi ble based on patient's age to complete this topic Hepatitis A Vaccines Aged Out No long er eligible based on patient's age to complete this topic Hepatitis B Vaccines Aged Out No long er eligible based on patient's age to complete this topic IPV Vaccines Aged Out No longer eligi ble based on patient's age to complete this topic MMR Vaccines Aged Out No longer eligi ble based on patient's age to complete this topic Medical Devices Implanted Type Area Welding Machine Operator Device Identifier Shelf Expiration Date Model / Serial / Lot Femur Cemented Cr Standard Nitrided Right Size 8 Implanted:Qty: 1 on 01/20/2024 by Robin Burr DO at [facility] Femur Right: Knee Sandro [id number] 12/28/2033 [id number] / / [id number] Cement, Bone Biomet - [id number] Implanted:Qty: 2 on 01/20/2024 by Robin Burr DO at [facility] Right: Knee Sandro 04/18/2026 [id number] / / [id number] Tibia, Persona 5' Right Sz E - [id number] Implanted:Qty: 1 on 01/20/2024 by Robin Burr DO at [facility] Right: Knee Sandro 05/07/2032 [id number] / / [id number] Ext, Stem Persona 14mm +30mm - [id number] Implanted:Qty: 1 on 01/20/2024 by Robin Burr DO at [facility] Right: Knee Sandro 10/31/2033 [id number] / / [id number] Patella, Thin A 34mm 3 Peg - [id number] Implanted:Qty: 1 on 01/20/2024 by Robin Burr DO at [facility] Right: Knee BIOMET 10/12/2028 [id number] / / [id number] Surface, Art Persona 12mm R - [id number] Implanted:Qty: 1 on 01/20/2024 by Robin Burr DO at [facility] Right: Knee Sandro 02/09/2028 [id number] / / [id number] Procedures Procedure Name Priority Date/Time Associated Diagnosis Comments XR KNEE ARTHRITIC SERIES RT Routine 01/01/2025 7:46 AM PDT S/P total knee replacement, right THYROID STIMULATING HORMONE AND FREE T4 Routine 12/08/2024 12:07 PM PDT Osteoporosis, unspecified osteoporosis type, unspecified pathological fracture presence Thyroid nodule PARATHYROID HORMONE (PTH) PLUS CALCIUM Routine 12/08/2024 12:07 PM PDT Osteoporosis, unspecified osteoporosis type, unspecified pathological fracture presence Thyroid nodule RENAL FUNCTION PANEL Routine 12/08/2024 12:07 PM PDT Osteoporosis, unspecified osteoporosis type, unspecified pathological fracture presence Thyroid nodule VITAMIN D, 25-HYDROXY Routine 12/08/2024 12:07 PM PDT Osteoporosis, unspecified osteoporosis type, unspecified pathological fracture presence Thyroid nodule MG SCREENING BILATERAL DIGITAL BREAST TOMOSYNTHESIS Routine 03/01/2023 4:06 PM PST Encounter for screening mammogram for malignant neoplasm of breast HM COLONOSCOPY Routine 03/25/2010 from Last 3 Months or Most Recently Relevant to Health Maintenance Results * XR KNEE ARTHRITIC SERIES RT (01/01/2025 7:46 AM PDT) Anatomical Region Laterality Modality Knee Right Radiographic Deonna ging 01/01/2025 7:53 AM PDT Narrative 01/01/2025 7:53 [place]. [address] PATIENT NAME: FARIDA MERA : 1945 GENDER: F EXAM DATE: 01/01/2025 7:34 [place] [facility] [facility] [place] PHYSICIAN: ROBIN BURR CC: -- - - - CONTRAST: READING STATION ID: [id number] mGy: PROCEDURE: XR KNEE ARTHRITIC SERIES RT INDICATIONS: pain TECHNIQUE: 3 views of the knee(s). COMPARISON: [facility], , XR KNEE ARTHRITIC SERIES RT, 01/03/2024, 13:50. [facility], , XR KNEE ARTHRITIC SERIES RT, 04/08/2023, 8:46. FINDINGS: Bones: No acute fractures or dislocations. Patellar alignment is normal on the sunrise view. No suspicious bony lesions. Moderate left knee medial compartment predominant degenerative arthrosis. Changes of right total knee arthroplasty. No acute hardware complication. Soft tissues: No knee joint effusion. No suspicious soft tissue calcification. IMPRESSION: Left knee medial compartment grade 3 degenerative arthrosis. No acute osseous abnormality of the left knee. Changes of right total knee arthroplasty without acute hardware complication. Reviewed by: Edward Hong M.D. on 01/01/2025 at 7:52 Approved by: Edward Hong M.D. on 01/01/2025 at 7:53 Procedure Note Edward Hong MD - 01/01/2025 [place]. [address] PATIENT NAME: FARIDA MERA : 1945 GENDER: F EXAM DATE: 01/01/2025 7:34 [place] [facility] [place] ORDER[place] PHYSICIAN: ROBIN BURR CC: -- - - - CONTRAST: READING STATION ID: [id number] mGy: PROCEDURE: XR KNEE ARTHRITIC SERIES RT INDICATIONS: pain TECHNIQUE: 3 views of the knee(s). COMPARISON: [facility], CR, XR KNEE ARTHRITIC SERIES RT,01/03/2024, 13:50. [facility], , XR KNEE ARTHRITIC SERIESRT, 04/08/2023, 8:46. FINDINGS: Bones: No acute fractures or dislocations. Patellar alignment is normalon the sunrise view. No suspicious bony lesions. Moderate left kneemedial compartment predominant degenerative arthrosis. Changes of righttotal knee arthroplasty. No acute hardware complication. Soft tissues: No knee joint effusion. No suspicious soft tissuecalcification. IMPRESSION: Left knee medial compartment grade 3 degenerative arthrosis. No acute osseous abnormality of the left knee. Changes of right total knee arthroplasty without acute hardwarecomplication. Reviewed by: Edward Hong M.D. on 01/01/2025 at 7:52 Approved by: Edward Hong M.D. on 01/01/2025 at 7:53 us Robin Burr DO [facility] XR PROCEDURES Final Result * Thyroid stimulating hormone and free T4 (12/08/2024 12:07 PM PDT) TSH, Serum/Plasma 0.466 0.450 - 4.500 uIU/mL LAB CHEMISTRY METHOD 12/08/2024 3:51 PM PDT [facility] Comment: Thyroid function test results of women differ from those of non- women. Reference Ranges for : First trimester 0.100-2.500 uIU/mL Second trimester 0.200-3.000 uIU/mL Third trimester 0.300-3.000 uIU/mL Non- adult 0.450-4.500 uIU/mL Patients taking Biotin supplements may have falsely decreased HCG, Ferritin, PSA, Troponin, or TSH test values. Thyroxine Free, Serum/Plasma 1.40 0.82 - 1.77 ng/dL LAB CHEMISTRY METHOD 12/08/2024 3:51 PM PDT [facility] Blood Venous blood / Unknown Venipuncture / Unknown 12/08/2024 12:07 PM PDT 12/08/2024 1:34 PM PDT Be Walker DO LAB BLOOD ORDERABLES Final Result [facility] [address] [id number], * Ca+PTH Intact (12/08/2024 12:07 PM PDT) PTH, INTACT, Serum/Plasma 30.8 14.2 - 75.2 pg/mL LAB CHEMISTRY METHOD 12/08/2024 3:31 PM PDT [facility] Comment:Note: Reference Ra nges revised 06/21/23. Calcium, Serum/Plasma 9.3 8.5 - 10.1 mg/dL LAB CHEMISTRY METHOD 12/08/2024 3:31 PM PDT [facility] Blood Venous blood / Unknown Venipuncture / Unknown 12/08/2024 12:07 PM PDT 12/08/2024 1:34 PM PDT [facility] - 12/08/2024 3:31 PM PDT Interpretation Intact PTH (pg/mL) Calcium (mg/dL) Normal 15-65 8.6-10.2 Primary Hyperparathyroidism >65 >10.2 Secondary Hyperparathyroidism >65 <10.2 Non-Parathyroid Hypercalcemia 65 >10.2 Hypoparathyroidism <15 <8.6 Non-Parathyroid Hypocalcemia 15-65 <8.6 Be Walker DO LAB BLOOD ORDERABLES Final Result Performing Organization Address City/[facility]/ZIP Co de Phone Number [facility] [address] [place] [address], * (ABNORMAL) Vitamin D, 25-Hydroxy (12/08/2024 12:07 PM PDT) Vitamin D, 25-Hydroxy, Serum 101.0(H) 30.0 - 100.0 ng/mL LAB CHEMISTRY METHOD 12/08/2024 3:38 PM PDT [facility] Blood Venous blood / Unknown Venipuncture / Unknown 12/08/2024 12:07 PM PDT 12/08/2024 1:34 PM PDT [facility] [place] [facility] - 12/08/2024 3:38 PM PDT Vitamin D deficiency has been defined by the [place] of [employer] and an Endocrine Society practice guideline as a level of serum 25-OH vitamin D less than 20 ng/mL (1,2). The Endocrine Society went on to further define vitamin D insufficiency as a level between 21 and 29 ng/mL (2). 1. IOM ([place] [employer]). 2010. Dietary reference intakes for calcium and D. [place]: The National Academies Press. 2. Avi MF, Conor NC, Lilly ROSALES, et al. Evaluation, treatment, and prevention of vitamin D deficiency: an Endocrine Society clinical practice guideline. JCEM. 2010; 96(7):1911-30. Be Walker DO LAB BLOOD ORDERABLES Final Result Performing Organization Address City/[facility]/ZIP Co de Phone Number [facility] [address] [place] [phone], * (ABNORMAL) Renal function panel (12/08/2024 12:07 PM PDT) [facility] Sodium, Serum/Plasma 137 135 - 145 mmol/L LAB CHEMISTRY METHOD 12/08/2024 3:16 PM [facility] Potassium, Serum/Plasma 4.4 3.5 - 5.2 mmol/L LAB CHEMISTRY METHOD 12/08/2024 3:16 PM [facility] Chloride, Serum/Plasma 104 98 - 107 mmol/L LAB CHEMISTRY METHOD 12/08/2024 3:16 PM [facility] CO2, Serum/Plasma 25 22 - 30 mmol/L LAB CHEMISTRY METHOD 12/08/2024 3:16 PM [facility] Urea Nitrogen, Serum/Plasma 23.1 8.0 - 27.0 mg/dL LAB CHEMISTRY METHOD 12/08/2024 3:16 PM [facility] Creatinine, Serum/Plasma 0.75 0.57 - 1.00 mg/dL LAB CHEMISTRY METHOD 12/08/2024 3:16 PM [facility] Glucose, Serum/Plasma 83 65 - 99 mg/dL LAB CHEMISTRY METHOD 12/08/2024 3:16 PM [facility] Calcium, Serum/Plasma 9.4 8.5 - 10.1 mg/dL LAB CHEMISTRY METHOD 12/08/2024 3:16 PM [facility] Phosphorus, Serum/Plasma 2.8 2.5 - 4.5 mg/dL LAB CHEMISTRY METHOD 12/08/2024 3:16 PM [facility] Albumin, Serum/Plasma 4.1 3.4 - 5.0 g/dL LAB CHEMISTRY METHOD 12/08/2024 3:16 PM [facility] eGFR, Serum/Plasma (CKD-EPI 2020) 82 >60 (CKD-EPI 2020) mL/min/1. 73 m2 12/08/2024 3:16 PM [facility] Comment: eGFR calculation has been updated by recommendation of the National Kidney Foundation (NKF) without the race variable. This change was made on July 06, 2022 Interpretation for GFR in Chronic Kidney Disease can be viewed below. BUN/Creatinine Ratio, Serum/Plasma 30.8(H) 6.0 - 24.0 12/08/2024 3:16 PM PDT [facility] Blood Venous blood / Unknown Venipuncture / Unknown 12/08/2024 12:07 PM PDT 12/08/2024 1:34 PM PDT Narrative [facility] - 12/08/2024 3:16 PM PDT Interpretive Data The estimated glomerular filtration rate (eGFR) was calculated using the 2020 CKD-EPI eGFR creatinine equation, which does not include race as a factor. This equation is validated in individuals 18 years of age and older. Accurate estimation of GFR requires stable day-to-day creatinine. Creatinine-based eGFR is less accurate in patients with extremes of muscle mass, restriction of dietary protein, ingestion of creatine, extra-renal metabolism of creatinine, or treatment with medications that affect renal tubular creatinine secretion. The eGFR is normalized to a body surface area of 1.73 square meters. GFR Categories in Chronic Kidney Disease (CKD) GFR Category GFR (mL/min/1.73 square meters) Interpretation G1 90 or greater Normal to high* G2 60-89 Mild decrease* G3a 45-59 Mild to moderate decrease G3b 30-44 Moderate to severe decrease G4 15-29 Severe decrease G5 14 or less Kidney failure *In the absence of evidence of kidney damage, neither GFR category G1 nor G2 fulfill the criteria for CKD (Kidney Int Suppl 2013;3:1-150) us Be Walker DO LAB BLOOD ORDERABLES Final Result Performing Organization Address City/State/[facility] Co de Phone Number [facility] [address] [place] [address], * MG SCREENING BILATERAL DIGITAL BREAST TOMOSYNTHESIS (03/01/2023 4:06 PM PST) Anatomical Region Laterality Modality Bilateral Mammography 03/01/2023 3:54 PM PST Impressions 03/02/2023 12:11 PM PST IMPRESSION: NEGATIVE There is no mammographic evidence of malignancy. A 1 year screening mammogram is recommended. Based on the Tyrer Cuzick model (a risk assessment model) the patient s lifetime risk is 6.2% and her 10 year risk is 0.0%. According to the ACR, ACS, and NCCN guidelines, an annual breast MRI exam along with mammogram is recommended if the patient s lifetime risk is 20% or greater. Narrative 03/02/2023 12:11 PM PST B BILATERAL DIGITAL SCREENING MAMMOGRAM 3D/2D WITH CAD: 03/01/2023 CLINICAL: Routine screening. Comparison is made to exams dated: 02/26/2022 mammogram, 02/24/2021 mammogram, 02/24/2020 mammogram, and 02/22/2019 mammogram - [facility]. There are scattered areas of fibroglandular density in both breasts (category b / 25%-50% glandular tissue). Current study was also evaluated with a Computer Aided Detection (CAD) system. No significant masses, calcifications, or other findings are seen in either breast. There has been no significant interval change. This exam was interpreted at Station ID: [id number]. NOTE: For mammograms, a report in lay terms will be sent to the patient. Approximately 15% of breast malignancies will not be visualized mammographically. In the management of a palpable breast mass, a negative mammogram must not discourage biopsy of a clinically suspicious lesion. Electronically Signed By: Reyes whitaker/gildardo:03/02/2023 12:11:22 letter sent: Normal Exam ACR BI-RADS Category 1: Negative 3341F Mammogram [id number] 1 year screening B Procedure Note Reyes Luz MD - 03/03/2023 B BILATERAL DIGITAL SCREENING MAMMOGRAM 3D/2D WITH CAD: 03/01/2023 CLINICAL: Routine screening. Comparison is made to exams dated: 02/26/2022 mammogram, 02/24/2021mammogram, 02/24/2020 mammogram, and 02/22/2019 mammogram - [facility]. There are scattered areas of fibroglandular density in both breasts(category b / 25%-50% glandular tissue). Current study was also evaluated with a Computer Aided Detection (CAD)system. No significant masses, calcifications, or other findings are seen ineither breast. There has been no significant interval change. This exam was interpreted at Station ID: [id number]. NOTE: For mammograms, a report in lay terms will be sent to the patient.Approximately 15% of breast malignancies will not be visualizedmammographically. In the management of a palpable breast mass, a negativemammogram must not discourage biopsy of a clinically suspicious lesion. Electronically Signed By: Reyes whitaker/guillerminarad:03/02/2023 12:11:22 letter sent: Normal Exam ACR BI-RADS Category 1: Negative 3341F Mammogram [id number] 1 year screening B IMPRESSION: NEGATIVE There is no mammographic evidence of malignancy. A 1 year screeningmammogram is recommended. Based on the Tyrer Cuzick model (a risk assessment model) the patient s lifetime risk is 6.2% and her 10 year risk is 0.0%. According to the ACR,ACS, and NCCN guidelines, an annual breast MRI exam along with mammogramis recommended if the patient s lifetime risk is 20% or greater. Maggi Yeager DO [facility] MG PROCEDURES Final Resu lt * Hm Colonoscopy (03/25/2010) External/Histor ical Colonoscopy colonoscopy Historical Provider HEALTH MAINTENANCE Final Result from Last 3 Months or Most Recently Relevant to Health Maintenance Insurance [employer] [place] [address] Advance Directives * Full Code (Latest Code Status on File) Date Activated Date Inactivated Comments 01/20/2024 11:00 AM 01/21/2024 2:21 PM * Full Code Date Activated Date Inactivated Comments 01/20/2024 5:10 AM 01/20/2024 11:00 AM * Full Code Date Activated Date Inactivated Comments 08/04/2023 11:12 AM 08/04/2023 2:10 PM * Full Code Date Activated Date Inactivated Comments 05/06/2020 10:52 AM 05/06/2020 6:09 PM * Full Code Date Activated Date Inactivated Comments 10/13/2017 11:53 AM 10/14/2017 1:22 PM Care Teams Assistant Foreman Relationship Specialty Start Date End Date Maggi Yeager DO [address] [place] [address] PCP - General Family Medicine 09/20/24
--- OUTSIDE RECORDS SUMMARY | 2025-03-09 14:37 | XMS_ITS | Encounter Summary ---
Author Organization [facility] Address [facility] [address] Care Team Providers Care Program Facilitator Name Role Phone Jossy Mac DO Primary Care Provider [phone] Liz Boss NP Unavailable [phone] Grant Gutierrez Primary Care Provider Nikia Sinclair MD Primary Care Provider [phone] WeeksMaggi DO Primary Care Provider Reason for Referral * Specialty Services (Routine) - Closed Specialty Diagnoses / Procedures Referred By Aliya chen Referred To Contact Pulmonology Diagnoses Lung nodule seen on imaging study Procedures OH OFFICE/OUTPT VISIT,EST,LEVL IV Jossy Mac DO [address] [place] [address] Phone: tel: fax: PULMONOLOGY - [facility] [place] [address] [facility] [address] [facility] [address] [place] [address] Phone: tel: fax: Referral ID Status Reason Start Date Expiration Date Visits Re quested Visits Authorized [id number] Closed 07/22/2015 07/21/2016 1 1 Encounter Details Date Type Department Care Team (Latest Contact Info) Description 07/22/2015 Order Communications Writer PULMONOLOGY - [facility] [place] [address] [place] [id number] Jossy Mac DO [address] [place] [id number] Lung nodule seen on imaging study (Primary Dx) Social History Tobacco Use Types [...] Name Type Priority Associated Diagnoses Order Schedule Ambulatory referral to Pulmonology Outpatient Referral Routine Lung nodule seen on imaging study Ordered: 07/22/2015 documented as of this encounter Visit Diagnoses Diagnosis Lung nodule seen on imaging study- Primary documented in this encounter Care Teams Program Facilitator Relationship Specialty Start Date End Date Jossy Mac DO [address] [place], [place] [phone] PCP - General Family Medicine 07/11/15 09/16/20 Grant Gutierrez ARNP [address] [place] [phone] PCP - General Nurse Practitioner 09/17/20 12/15/21 Nikia Sinclair MD [address] [phone] PCP - General Internal Medicine 12/16/21 05/17/23 Maggi Yeager DO [address] [place] [id number] PCP - General 05/18/23 Liz Boss NP [address] [place] [address] Nurse Practitioner Nurse Practitioner 07/25/15 documented as of this encounter
--- OUTSIDE RECORDS SUMMARY | 2025-03-09 14:37 | XMS_ITS | Encounter Summary ---
Author Organization [facility] Address [address] [place] [address] Care Team Providers Care Brick Chimney Supervisor Name Role Phone Maggi Yeager DO Primary Care Provider [phone] Reason for Visit * Reason Comments Med Refill Encounter Details Date Type Department Care Team (Late Contact Info) Description 10/24/2024 Refill [facility] Cardiology [address], [address] [place] [address] Anirudh Hampton MD [address] [place] [address] [place] [address] Social History Tobacco Use Types Packs/Day [...] Description 03/13/2025 1:40 PM PST Office Visit [facility] Cardiology [address], [place] [address] Santino Gonzalez PA-C [address] [place] [address] 300 [place] [address] 05/17/2025 1:10 PM PST Office Visit Located Within [facility] Surgery Center Foot and Ankle [address], [place] [address] Jaden Mejia DPM [facility] [address] [place] [id number] 08/16/2025 11:00 AM PDT Office Visit [facility] [place] Endocrinology [address] [facility] [address] [place] [address] Be Walker DO [address] [place] [address] documented as of this encounter Visit Diagnoses Not on filedocumented in this encounter Care Teams Brick Chimney Supervisor Relationship Specialty Start Date End Date Maggi Yeager DO [address] [address] PCP - General Family Medicine 09/20/24 documented as of this encounter
--- OUTSIDE RECORDS SUMMARY | 2025-03-09 14:37 | XMS_ITS | Encounter Summary ---
Author Organization [facility] Address [address] [place] [address] Care Team Providers Care Crop Research Scientist Name Role Phone Maggi Yeager Primary Care Provider [phone] Encounter Details Date Type Department Care Team (Late Contact Info) Description 11/02/2024 Orders Only [facility] Endocrinology [address] [facility] [address] [place] [address] Be Walker DO 1400 [place] [address] Osteoporosis, unspecified osteoporosis type, unspecified [...] Description 03/13/2025 1:40 PM PST Office Visit [facility] Cardiology [address], [place] [address] Santino Gonzalez PA-C [address] [address] [place] [address] 05/17/2025 1:10 PM PST Office Visit [facility] Surgery Center Foot and Ankle [address], [place] [address] Jaden Mejia DPM [facility] Center [address] [facility] [address] [place], [place] [phone] 08/16/2025 11:00 AM PDT Office Visit [facility] Endocrinology [address] [facility] [address] [place] [address] Be Walker DO 1400 [place] [address] documented as of this encounter Procedures Procedure Name Priority Date/Time Associated Diagnosis Comments PARATHYROID HORMONE (PTH) PLUS CALCIUM Routine 10/26/2024 Osteoporosis, unspecified osteoporosis type, unspecified pathological fracture presence Thyroid nodule documented in this encounter Results * Ca+PTH Intact (10/26/2024) Blood Venous blood / Unknown Be Walker DO LAB BLOOD ORDERABLES Final Result [facility] [address] [address], documented in this encounter Visit Diagnoses Diagnosis Osteoporosis, unspecified osteoporosis type, unspecified pathological fracture presence Thyroid nodule Nontoxic uninodular goiter Paroxysmal atrial fibrillation (CMS/HCC)- Primary Atrial fibrillation documented in this encounter Care Teams Crop Research Scientist Relationship Specialty Start Date End Date Maggi Yeager DO 1213 [address] [facility] 100 [place] [address] PCP - General Family Medicine 09/20/24 documented as of this encounter
--- OUTSIDE RECORDS SUMMARY | 2025-03-09 14:37 | XMS_ITS | Encounter Summary ---
Author Organization [facility] Address [facility] [address] Care Team Providers Care Software Test Analyst Name Role Phone Josys Mac DO Primary Care Provider [phone] Liz Boss POWERHOUSE ATTENDANT Unavailable [phone] Grant Gutierrez Primary Care Provider [phone] Nikia Sinclair MD Primary Care Provider Maggi Yeager DO Primary Care Provider [phone] Encounter Details Date Type Department Care Team (Late st Contact Info) Description 11/28/2007 Scanned Document SCANNED ONLY Scanned, Document Social [...] on filedocumented in this encounter Care Teams Software Test Analyst Relationship Specialty Start Date End Date Jossy Mac DO [address] [facility] [place], [place] [phone] PCP - General Family Medicine 07/11/15 09/16/20 Grant Gutierrez ARNP [address] [address] PCP - General Nurse Practitioner 09/17/20 12/15/21 Nikia Sinclair MD [address] [place] [address] PCP - General Internal Medicine 12/16/21 05/17/23 Maggi Yeager DO [address] [place] [address] PCP - General 05/18/23 Liz Boss NP [address] [place] [address] Nurse Practitioner Nurse Practitioner 07/25/15 documented as of this encounter
--- OUTSIDE RECORDS SUMMARY | 2025-03-09 14:37 | XMS_ITS | Encounter Summary ---
Author Organization [facility] Address [address] [address] Care Team Providers Care Building Rental Superintendent Name Role Phone Liz Boss ENERGY PROJECT ENGINEER Unavailable [phone] Maggi Yeager DO Primary Care Provider [phone] Encounter Details Date Type Department Care Team (Late st Contact Info) Description 01/10/2024 Scanned Document SCANNED ONLY Scanned, Document Social [...] on filedocumented in this encounter Care Teams Building Rental Superintendent Relationship Specialty Start Date End Date Maggi Yeager DO [address] [facility] 100 [place] [address] PCP - General 05/18/23 Liz Boss NP Nurse Practitioner Nurse Practitioner 07/25/15 documented as of this encounter
--- OUTSIDE RECORDS SUMMARY | 2025-03-09 14:37 | XMS_ITS | Encounter Summary ---
Author Organization [facility] Address [address] [address] Care Team Providers Care Belt Measurer Name Role Phone Liz Boss BUS GREASER Unavailable [phone] Maggi Yeager DO Primary Care Provider [phone] Encounter Details Date Type Department Care Team (Late st Contact Info) Description 07/05/2024 Documentation [facility] BUTTER LIQUEFIER Scanned, Document Social History Tobacco Use Types [...] on filedocumented in this encounter Care Teams Belt Measurer Relationship Specialty Start Date End Date Maggi Yeager DO 1213 [facility] 100 [place] [address] PCP - General 05/18/23 Liz Boss NP Nurse Practitioner Nurse Practitioner 07/25/15 documented as of this encounter
--- OUTSIDE RECORDS SUMMARY | 2025-03-09 14:37 | XMS_ITS | Encounter Summary ---
Author Organization [facility] Address [address] [place] [address] Care Team Providers Care Environmental Marketer Name Role Phone Maggi Yeager DO Primary Care Provider [phone] Encounter Details Date Type Department Care Team ([facility] Contact Info) Description 12/09/2021 Orders Only [facility] Rheumatology [address] [address] Cullen Valenzuela, MICHOACANO Social History [...] Description 03/13/2025 1:40 PM PST Office Visit [facility] Cardiology [address], [place] [address] Santino Gonzalez PA-C [address] [place] [address] [address] [place] [address] 05/17/2025 1:10 PM PST Office Visit [facility] Surgery Center Foot and Ankle [address] [place] [phone] Jaden Mejia DPM [facility] Wound Care Center [address] [place], [place] [phone] 08/16/2025 11:00 AM PDT Office Visit [facility] Endocrinology 2320 [facility] [address] [place] [address] Be Walker DO 1400 [place], [place] [phone] documented as of this encounter Visit Diagnoses Not on filedocumented in this encounter Care Teams Environmental Marketer Relationship Specialty Start Date End Date Maggi Yeager DO [address] [address] PCP - General Family Medicine 09/20/24 documented as of this encounter
--- OUTSIDE RECORDS SUMMARY | 2025-03-09 14:37 | XMS_ITS | Encounter Summary ---
Author Organization [facility] Address [address] [place] [address] Care Team Providers Care Commercial Photographer Name Role Phone Maggi Yeager DO Primary Care Provider [phone] Reason for Visit * Reason Comments Med Refill Encounter Details Date Type Department Care Team (Late Contact Info) Description 10/27/2020 Refill [facility] Cardiology [address], [address] [place] [address] Anirudh Hampton MD [address] [place] [address] [place] [address] Social History Tobacco Use Types Packs/Day [...] Description 03/13/2025 1:40 PM PST Office Visit [facility] Cardiology [address], [place] [address] Santino Gonzalez PA-C [address] [place] [address] 05/17/2025 1:10 PM PST Office Visit [facility] Surgery Center Foot and Ankle [address], [place] [address] Jaden Mejia DPM [facility] Wound Care Center [address] [place] [phone] 08/16/2025 11:00 AM PDT Office Visit [facility] [place] Endocrinology [address]20 [facility] [address] [place] [address] Be Walker DO [address] [place] [address] documented as of this encounter Visit Diagnoses Not on filedocumented in this encounter Care Teams Commercial Photographer Relationship Specialty Start Date End Date Maggi Yeager DO [address] [place] [address] PCP - General Family Medicine 09/20/24 documented as of this encounter
--- OUTSIDE RECORDS SUMMARY | 2025-03-09 14:37 | XMS_ITS | Encounter Summary ---
Author Organization [facility] Address [facility] [address] Care Team Providers Care Sewer Hand Name Role Phone Jossy Mac DO Primary Care Provider [phone] Liz Boss ACOUSTICAL TILE PATTERNMAKER Unavailable [phone] Grant Gutierrez Primary Care Provider [phone] Nikia Sinclair MD Primary Care Provider [phone] WeeksMaggi DO Primary Care Provider Encounter Details Date Type Department Care Team (Late st Contact Info) Description 02/19/2020 Scanned Document SCANNED ONLY Scanned, Document Social [...] on filedocumented in this encounter Care Teams Sewer Hand Relationship Specialty Start Date End Date Jossy Mac DO [address] [place] [address] PCP - General Family Medicine 07/11/15 09/16/20 Grant Gutierrez ARNP [address] [place] [address] PCP - General Nurse Practitioner 09/17/20 12/15/21 Nikia Sinclair MD [address] [place] [address] PCP - General Internal Medicine 12/16/21 05/17/23 Maggi Yeager DO [address] [place] [address] PCP - General 05/18/23 Liz Boss NP [address]11 [place] [address] Nurse Practitioner Nurse Practitioner 07/25/15 documented as of this encounter
--- OUTSIDE RECORDS SUMMARY | 2025-03-09 14:37 | XMS_ITS | Encounter Summary ---
Author Organization [facility] Address [address] [place] [address] Care Team Providers Care Gerontological Nurse Practitioner Name Role Phone Maggi Yeager DO Primary Care Provider [phone] Encounter Details Date Type Department Care Team (Late st Contact Info) Description 11/28/2018 Refill [facility] Cardiology [address], [address] [place] [address] Anirudh Hampton MD [address] [place] [address] [place] [address] Social History Tobacco Use Types Packs/Day [...] Description 03/13/2025 1:40 PM PST Office Visit [facility] Cardiology [address], [place] [address] Santino Gonzalez PA-C [facility] [address] [place] [address] 05/17/2025 1:10 PM PST Office Visit [facility] Surgery Center Foot and Ankle [address], [place] [address] Jaden Mejia DPM [facility] Wound Care Center [address] [place] [address] 08/16/2025 11:00 AM PDT Office Visit [facility] Endocrinology [address] [place] [address] Be Walker DO 1400 [place], [place] [phone] documented as of this encounter Visit Diagnoses Not on filedocumented in this encounter Care Teams Gerontological Nurse Practitioner Relationship Specialty Start Date End Date Shobha, DO Maggi [address] [place] [address] PCP - General Family Medicine 09/20/24 documented as of this encounter
--- OUTSIDE RECORDS SUMMARY | 2025-03-09 14:37 | XMS_ITS | Encounter Summary ---
Author Organization [facility] Address [address] [place] [address] Care Team Providers Care Sponge Clipper Name Role Phone Maggi Yeager DO Primary Care Provider [phone] Reason for Visit * Reason Comments Med Refill Encounter Details Date Type Department Care Team (Late Contact Info) Description 11/23/2019 Refill [facility] Cardiology [address], [address] [place] [address] Anirudh Hampton MD [address] [place] [address] [place] [address] Social History Tobacco Use Types Packs/Day [...] Description 03/13/2025 1:40 PM PST Office Visit [facility] Cardiology [address], [place] [address] Santino Gonzalez, ALEKSANDRA [address] [place] [address] 300 [place] [address] 05/17/2025 1:10 PM PST Office Visit [facility] Foot [facility] Ankle [address], [place] [address] Jaden Mejia DPM [facility] Wound Care Center [address] [place] [address] 08/16/2025 11:00 AM PDT Office Visit [facility] [place] Endocrinology [address] [facility] [address] [place] [address] Be Walker DO 1400 [place] [address] documented as of this encounter Visit Diagnoses Not on filedocumented in this encounter Care Teams Sponge Clipper Relationship Specialty Start Date End Date Maggi Yeager DO [address] [place] [address] PCP - General Family Medicine 09/20/24 documented as of this encounter
--- OUTSIDE RECORDS SUMMARY | 2025-03-09 14:37 | XMS_ITS | Encounter Summary ---
Author Organization [facility] Address [address] [place] [address] Care Team Providers Care E Commerce Solution Architect Name Role Phone ShobhaMaggi Primary Care Provider [phone] Reason for Referral * Consultation (Routine) - Pending Review Specialty Diagnoses / Procedures Referred By Aliya t Referred To Contact Endocrinology, Diabetes, Metabolism Diagnoses Osteoporosis, unspecified osteoporosis type, unspecified pathological fracture presence Rere Miller ARNP [address] [place] [address] Phone: tel: fax: Referral ID Status Reason Start Date Expiration Date Visits Requested Visits Authorized [id number] Pending Review Specialty Services Required 03/01/2026 1 1 [facility] Reason for Visit * Reason Onset Date Comments Medical Question 03/05/2025 Encounter Details Date Type Department Care Team (Late st Contact Info) Description 03/05/2025 Telephone [facility] Endocrinology [address]20 [facility] [address] [place] [address] Be Walker DO [address] [place] [address] Medical Question Social History Tobacco Use Types Packs/Day Years [...] as of this encounter Miscellaneous Notes * Addendum Note - GINETTE Valdez - 03/06/2025 11:20 AM PSTAddended by: RERE MILLER on: 03/06/2025 11:20 AM Modules accepted: Orders * Telephone Encounter - Geneva Garcia MA - 03/06/2025 11:19 AM PST Form has been placed in my desk. Awaiting auth # from referrals team, then will fax out once completed * Telephone Encounter - GINETTE Valdez - 03/06/2025 11:14 AM PST Form completed & referral for med auth placed. Please monitor for auth and send form to [facility]. Thanks! * Telephone Encounter - Gracia Valerio MA - 03/05/2025 1:06 PM PST Called and talked to pt. She needs new referral for Reclast infusion sent in. She is having this done at [facility]. Also what labs are you wanting pt to have done before, or after the infusion. Please advise Thank you Gracia BAIN * Telephone Encounter - Be Walker DO - 03/05/2025 12:32 PM PST It is ok to keep her appt in July. She is on yearly Reclast, which she is getting in April as per the notes. If she has an acute issue, we can schedule her with an MANAGER BUSINESS MANAGEMENT to address that. Thanks * Telephone Encounter - Di Velazquez Willian - 03/05/2025 11:03 AM PST Patient was seen 11/14/[address] Walker and was told she needed to be seen for a 6 month follow up but was scheduled 08/16/25. She thinks she was scheduled in error that late and would like a call back @ [phone] documented in this encounter Plan of Treatment Upcoming Encounters Date Type Department Care Team (Late st Contact Info) Description 03/13/2025 1:40 PM PST Office Visit [facility] Cardiology [address], [place] [address] Santino Gonzalez PA-C [address] [place] [address] [address] [place] [address] 05/17/2025 1:10 PM PST Office Visit [facility] Surgery Center Foot and Ankle [address] [address] Jaden Mejia DPM [facility] Wound Care Center [address] [place] [phone] 08/16/2025 11:00 AM PDT Office Visit [facility] Endocrinology [address]20 [facility] [address] [place] [address] Be Walker DO 1400 [place] [address] Scheduled Referrals Name Type Priority Associated Diagnoses Orde r Schedule [facility] Endocrinology Referral to Medication Authorization Outpatient Referral Routine Osteoporosis, unspecified osteoporosis type, unspecified pathological fracture presence Ordered: 03/06/2025 documented as of this encounter Visit Diagnoses Diagnosis Osteoporosis, unspecified osteoporosis type, unspecified pathological fracture presence- Primary Paroxysmal atrial fibrillation (CMS/HCC)- Primary Atrial fibrillation documented in this encounter Care Teams E Commerce Solution Architect Relationship Specialty Start Date End Date Shobha, DO Maggi [facility] [address] [place] [address] PCP - General Family Medicine 09/20/24 documented as of this encounter
--- OUTSIDE RECORDS SUMMARY | 2025-03-09 14:37 | XMS_ITS | Encounter Summary ---
Author Organization [facility] Address [address] [place] [address] Care Team Providers Care Heavy Equipment Diesel Mechanic Name Role Phone Maggi Yeager DO Primary Care Provider [phone] Encounter Details Date Type Department Care Team (Late Contact Info) Description 03/28/2021 Abstract [facility] Orthopedics [place] [address] [place] [address] Niles Rdoriguez MD Social History Tobacco Use Types Packs/Day [...] 03/13/2025 1:40 PM PST Office Visit [facility] Cardiology [address], [place] [address] Santino Gonzalez PA-C [address] [place] [address] [address] [place] [address] 05/17/2025 1:10 PM PST Office Visit [facility] Surgery Center Foot and Ankle [address] [phone] Jaden Mejia DPM [facility] Wound Care Center [address] [place] [phone] 08/16/2025 11:00 AM PDT Office Visit [facility] Endocrinology [address]20 [facility] [address] [place] [address] Be Walker DO [address] [place] [phone] documented as of this encounter Visit Diagnoses Not on filedocumented in this encounter Care Teams Heavy Equipment Diesel Mechanic Relationship Specialty Start Date End Date Maggi Yeager DO [address] [phone] PCP - General Family Medicine 09/20/24 documented as of this encounter
--- OUTSIDE RECORDS SUMMARY | 2025-03-09 14:37 | XMS_ITS | Encounter Summary ---
Author Organization [facility] Address [facility] [address] Care Team Providers Care Full Time Babysitter Name Role Phone Jossy Mac DO Primary Care Provider [phone] Liz Boss TRIAGE TECHNICIAN Unavailable [phone] Grant Gutierrez Primary Care Provider [phone] Nikia Sinclair MD Primary Care Provider Maggi Yeager DO Primary Care Provider Encounter Details Date Type Department Care Team (Late st Contact Info) Description 07/16/2015 Scanned Document SCANNED ONLY Scanned, Document Social [...] on filedocumented in this encounter Care Teams Full Time Babysitter Relationship Specialty Start Date End Date Jossy Mac DO [address] [place] [id number] PCP - General Family Medicine 07/11/15 09/16/20 Grant Gutierrez ARNP [address] [address] PCP - General Nurse Practitioner 09/17/20 12/15/21 Nikia Sinclair MD [address] [place] [address] PCP - General Internal Medicine 12/16/21 05/17/23 Maggi Yeager DO [address] [place] [address] PCP - General 05/18/23 Liz Boss NP [address] [place] [address] Nurse Practitioner Nurse Practitioner 07/25/15 documented as of this encounter
--- OUTSIDE RECORDS SUMMARY | 2025-03-09 14:37 | XMS_ITS | Encounter Summary ---
Author Organization [facility] Address [facility] [address] Care Team Providers Care Accessioner Name Role Phone Jossy Mac DO Primary Care Provider [phone] Liz Boss DIRECTOR EDUCATION Unavailable [phone] Grant Gutierrez Primary Care Provider [phone] Nikia Sinclair MD Primary Care Provider [phone] WeeksMaggi DO Primary Care Provider [phone] Encounter Details Date Type Department Care Team (Late st Contact Info) Description 01/14/2018 Scanned Document SCANNED ONLY Scanned, Document Social [...] on filedocumented in this encounter Care Teams Accessioner Relationship Specialty Start Date End Date Jossy Mac DO [address] [place] [address] PCP - General Family Medicine 07/11/15 09/16/20 Grant Gutierrez ARNP [address] [place] [address] PCP - General Nurse Practitioner 09/17/20 12/15/21 Nikia Sinclair MD [address] [place] [address] PCP - General Internal Medicine 12/16/21 05/17/23 Maggi Yeager DO [address] [place] [address] PCP - General 05/18/23 Liz Boss NP [address] [place] [address] Nurse Practitioner Nurse Practitioner 07/25/15 documented as of this encounter
--- OUTSIDE RECORDS SUMMARY | 2025-03-09 14:37 | XMS_ITS | Encounter Summary ---
Author Organization [facility] Address [address] [address] Care Team Providers Care Compression Molding Machine Setter Name Role Phone Jossy Mac DO Primary Care Provider [phone] Liz Boss NP Unavailable [phone] Grant Gutierrez Primary Care Provider Nikia Sinclair MD Primary Care Provider [phone] WeeksMaggi DO Primary Care Provider Reason for Referral * Specialty Services (Routine) - Closed Specialty Diagnoses / Procedures Referred By Aliya chen Referred To Contact Pulmonology Diagnoses Abnormal chest x-ray Pneumonia of right upper lobe due to infectious organism Procedures CT OFFICE/OUTPT VISIT,EST,LEVL IV Jossy Mac DO [address] [place] [address] Phone: tel: fax: PULMONOLOGY - [facility] [place] [address] [facility] [address] [place] [address] Phone: tel: fax: Referral ID Status Reason Start Date Expiration Date Visits Re quested Visits Authorized [id number] Closed 07/11/2015 07/10/2016 1 1 Encounter Details Date Type Department Care Team (Latest Contact Info) Description 07/11/2015 Order Digital Business Analyst PULMONOLOGY - [facility] [place] [address] [place] [id number] Jossy Mac DO [address] [place] [address] Abnormal chest x-ray (Primary Dx); Pneumonia of right upper lobe due to infectious organism Social History Tobacco Use Types Packs/Day Years [...] Ambulatory referral to Pulmonology Outpatient Referral Routine Abnormal chest x-ray Pneumonia of right upper lobe due to infectious organism Ordered: 07/11/2015 documented as of this encounter Visit Diagnoses Diagnosis Abnormal chest x-ray- Primary Nonspecific (abnormal) findings on radiological and other examination of lung field Pneumonia of right upper lobe due to infectious organism documented in this encounter Care Teams Compression Molding Machine Setter Relationship Specialty Start Date End Date Jossy Mac DO [address] [place] [address] PCP - General Family Medicine 07/11/15 09/16/20 Grant Gutierrez ARNP [address] [place] [address] PCP - General Nurse Practitioner 09/17/20 12/15/21 Nikia Sinclair MD [address] [place] [id number] PCP - General Internal Medicine 12/16/21 05/17/23 Maggi Yeager DO [address] [place] [address] PCP - General 05/18/23 Liz Boss NP [address] [place] [address] Nurse Practitioner Nurse Practitioner 07/25/15 documented as of this encounter
--- OUTSIDE RECORDS SUMMARY | 2025-03-09 14:38 | XMS_ITS | Encounter Summary ---
Author Organization [facility] Address [address] [address] Care Team Providers Care Roll Slicing Machine Tender Name Role Phone Liz Boss FIRE EXTINGUISHER REPAIRER Unavailable [phone] Maggi Yeager DO Primary Care Provider [phone] Encounter Details Date Type Department Care Team (Late st Contact Info) Description 08/06/2023 Scanned Document SCANNED ONLY Scanned, Document Social [...] on filedocumented in this encounter Care Teams Roll Slicing Machine Tender Relationship Specialty Start Date End Date Maggi Yeager DO [address] [facility] [address] [place] [address] PCP - General 05/18/23 Liz Boss NP Nurse Practitioner Nurse Practitioner 07/25/15 documented as of this encounter
--- OUTSIDE RECORDS SUMMARY | 2025-03-09 14:38 | XMS_ITS | Encounter Summary ---
Author Organization [facility] Address [facility] [address] Care Team Providers Care Sales And Marketing Professional Name Role Phone Jossy Mac DO Primary Care Provider [phone] Liz Boss AZURE ARCHITECT Unavailable [phone] Grant Gutierrez Primary Care Provider [phone] Nikia Sinclair MD Primary Care Provider Maggi Yeager DO Primary Care Provider Encounter Details Date Type Department Care Team (Late st Contact Info) Description 02/14/2014 Scanned Document SCANNED ONLY Scanned, Document Social [...] on filedocumented in this encounter Care Teams Sales And Marketing Professional Relationship Specialty Start Date End Date Jossy Mac DO [address] [facility] [place] [id number] PCP - General Family Medicine 07/11/15 09/16/20 Grant Gutierrez ARNP [address] [address] PCP - General Nurse Practitioner 09/17/20 12/15/21 Nikia Sinclair MD [address] [place] [address] PCP - General Internal Medicine 12/16/21 05/17/23 Maggi Yeagre DO [address] [place] [address] PCP - General 05/18/23 Liz Boss NP [address] [place] [address] Nurse Practitioner Nurse Practitioner 07/25/15 documented as of this encounter
--- OUTSIDE RECORDS SUMMARY | 2025-03-09 14:38 | XMS_ITS | Encounter Summary ---
Author Organization [facility] Address [address] [address] Care Team Providers Care Shop Tech Name Role Phone Liz Boss RADIOLOGIC TECHNOLOGY INSTRUCTOR Unavailable [phone] Maggi Yeager DO Primary Care Provider [phone] Encounter Details Date Type Department Care Team (Late st Contact Info) Description 10/29/2023 Scanned Document SCANNED ONLY Scanned, Document Social [...] on filedocumented in this encounter Care Teams Shop Tech Relationship Specialty Start Date End Date Maggi Yeager DO [address] [facility] [address] [place] [address] PCP - General 05/18/23 Liz Boss NP Nurse Practitioner Nurse Practitioner 07/25/15 documented as of this encounter
--- OUTSIDE RECORDS SUMMARY | 2025-03-09 14:38 | XMS_ITS | Encounter Summary ---
Author Organization [facility] Address [address] [address] Care Team Providers Care Front Counter Attendant Name Role Phone Gera Liz SUPPORT MANAGER Unavailable [phone] Maggi Yeager DO Primary Care Provider [phone] Encounter Details Date Type Department Care Team (Late st Contact Info) Description 05/21/2023 Documentation ENDOCRINOLOGY - [place], [place] [address] [place] [id number] Serge Roy MD HIM Unable to Validate [...] on filedocumented in this encounter Care Teams Front Counter Attendant Relationship Specialty Start Date End Date Maggi Yeager DO [address] [place] [address] PCP - General 05/18/23 Liz Boss NP Nurse Practitioner Nurse Practitioner 07/25/15 documented as of this encounter
== END ==
LOC: MAMMO 09:53
PROVIDERS: PCP Family Medicine; Referring Provider Family Medicine; Visit Provider Family Medicine
DX: N64.4 Mastodynia (principal); R92.333 Mammographic heterogeneous density, bilateral breasts; Z80.3 Family history of malignant neoplasm of breast
CPT/HCPCS: 77066; G0279